=== PATIENT | female | born 1960 | race Caucasian/White ===

== ENCOUNTER 2017-10-16 20:20 | Inpatient (IN) | payer MEDICARE, BC ==
[2017-10-16] MEDS: SOD CHLORIDE 0.9% 1,000 ML IV ×2 (20:51→23:55)
[2017-10-16] MEDS: ONDANSETRON 4 MG INJ IV ×2 (20:51)
[2017-10-16] MEDS: NALOXONE 2 MG SYG IV (20:51)
[2017-10-16] MEDS ORDERED: LORAZEPAM 2 MG INJ (21:34)
[2017-10-16] MEDS: LORAZEPAM 2 MG INJ IV (21:40)
[2017-10-16 22:01] LABS: AADO2 Arterial 599.2 mmHg (7.0-24.0); Arterial Base Excess 2.6 mmol/L (-3.0-3); Arterial Blood Gas Oxygen Sat 94.6 mmHG (95.0-98.0); Arterial Fraction of Oxyhgb 93.2 % (93.0-99.0); Arterial HCO3 27.6 mmol/L (22.0-26.0); Arterial MetHb 0.5 % (0.0-1.5); Arterial pCO2 43.6 mmhg (35-45); MODE MASK - NRB; Site Right Brachial
[2017-10-16 22:07] LABS: HEMATOCRIT 42.5 % (37.0-47.0); HEMOGLOBIN 14.3 g/dl (12.0-16.0); MEAN CORPUSCULAR HEMOGLOBIN 31.4 pg (29.0-33.0); MEAN CORPUSCULAR HGB CONC 33.6 g/dl (32.0-37.0); MEAN CORPUSCULAR VOLUME 93.4 fl (82.0-101.0); MEAN PLATELET VOLUME 10.6 fl (7.4-10.4); PLATELET COUNT 272 10^3/UL (140-415); RED BLOOD COUNT 4.55 10^6/ul (4.20-5.40); RED CELL DISTRIBUTION WIDTH 15.4 % (11.5-14.5)
[2017-10-16 22:07] LABS: WHITE BLOOD COUNT 11.6 10^3/ul (4.8-10.8)
[2017-10-16 22:09] LABS: ADD MAN DIFF? YES; POSITIVE DIFF @See below
[2017-10-16 22:31] LABS: ANISOCYTOSIS 2+ (0-0); BAND NEUTROPHILS #M 5.3 10^3/ul (0.0-0.6); BAND NEUTROPHILS % (M) 46 % (0-4); LYMPHOCYTES #M 2.4 10^3/ul (0.8-2.9); LYMPHOCYTES % (M) 21 % (15-51); METAMYELOCYTES #M 0.5 10^3/ul (0.0-0.0); METAMYELOCYTES %M 5 % (0-0); MICROCYTOSIS 1+ (0-0); MONOCYTE #M 0.3 10^3/ul (0.3-0.9); MONOCYTES % (M) 3 % (0-11); PLATELET ESTIMATE NORMAL; POLYCHROMASIA 2+ (0-0); REACTIVE LYMPHOCYTES #M 0.3 10^3/ul (0.0-0.0); REACTIVE LYMPHOCYTES% (M) 3 % (0-0); SEG NEUT #M 3.2 10^3/ul (1.6-7.5); SEGMENTED NEUTROPHILS (M) % 22 % (39-77)
[2017-10-16 22:33] LABS: ANION GAP 29 (8-16); BLOOD UREA NITROGEN 34 mg/dl (7-20); CALCIUM 12.4 mg/dl (8.4-10.2); CARBON DIOXIDE 29 mmol/L (21-31); CHLORIDE 89 mmol/L (97-110); CREATININE 1.92 mg/dl (0.44-1.00); GLUCOSE 109 mg/dl (70-220); POTASSIUM 3.4 mmol/L (3.5-5.1); SODIUM 144 mmol/L (135-144)
[2017-10-16 22:44] LABS: B-TYPE NATRIURETIC PEPTIDE 5750 PG/ML (0-125)
[2017-10-16 22:47] LABS: TROPONIN-I < 0.012 ng/ml (0.00-0.12)
[2017-10-16] MEDS: PIPER-TAZO 3.375 GM IV (PMX) 100 ML IVPB (23:55)
[2017-10-16] MEDS: HYDROCODONE/APAP (5/325) TAB PO (23:55)
[2017-10-16] MEDS: POTASSIUM CHLORIDE (SR) 20 MEQ TAB PO (23:55)
[2017-10-16] MEDS: FUROSEMIDE 20 MG INJ IV (23:56)
[2017-10-17 00:45] LABS: LACTIC ACID 3.7 mmol/L (0.5-2.0)
[2017-10-17 02:49] LABS: LACTIC ACID 1.8 mmol/L (0.5-2.0)
[2017-10-17] MEDS ORDERED: BISACODYL (EC) 5 MG TAB PO (03:30)
[2017-10-17] MEDS ORDERED: ALBUTEROL HFA 8 GM INHALER INH (03:30)
[2017-10-17] MEDS ORDERED: NACL 3% FOR INHALATION 15 ML NEBU NEB (03:30)
[2017-10-17] MEDS ORDERED: NACL 0.9% 3 ML SYG IV (03:30)
[2017-10-17] MEDS ORDERED: VANCOMYCIN IV PER PHARMACY XX (04:00)
[2017-10-17] MEDS: SOD CHLORIDE 0.9% 500 ML IV (05:07)
[2017-10-17] MEDS: VANCOMYCIN 1.5 GM in SOD CHLORIDE 0.9% 250 ML IVPB (05:13)
[2017-10-17] MEDS: PIPER-TAZO 3.375 GM IV (PMX) 100 ML IVPB ×3 (06:53→21:02)
[2017-10-17 07:30] LABS: WHITE BLOOD COUNT 8.2 10^3/ul (4.8-10.8)
[2017-10-17 07:30] LABS: ABNORMAL IP MESSAGE 1; HEMOGLOBIN 10.1 g/dl (12.0-16.0); MEAN CORPUSCULAR HEMOGLOBIN 31.4 pg (29.0-33.0); MEAN CORPUSCULAR HGB CONC 33.7 g/dl (32.0-37.0); MEAN CORPUSCULAR VOLUME 93.2 fl (82.0-101.0); MEAN PLATELET VOLUME 10.9 fl (7.4-10.4); PLATELET COUNT 135 10^3/UL (140-415); RED BLOOD COUNT 3.22 10^6/ul (4.20-5.40)
[2017-10-17 07:42] LABS: ADD MAN DIFF? YES; POSITIVE DIFF @See below
[2017-10-17 07:59] LABS: ALANINE AMINOTRANSFERASE 21 IU/L (13-69); ALBUMIN 3.3 g/dl (3.3-4.9); ALBUMIN/GLOBULIN RATIO 1.03; ALKALINE PHOSPHATASE 42 IU/L (42-121); ANION GAP 16 (8-16); ASPARTATE AMINO TRANSFERASE 39 IU/L (15-46); BILIRUBIN,INDIRECT 0.7 mg/dl (0-1.1); BILIRUBIN,TOTAL 0.7 mg/dl (0.2-1.3); BLOOD UREA NITROGEN 40 mg/dl (7-20); CARBON DIOXIDE 32 mmol/L (21-31); CHLORIDE 99 mmol/L (97-110); CHOL/HDL RATIO 2.2 RATIO; CHOLESTEROL 109 mg/dl (100-200); CREATININE 1.63 mg/dl (0.44-1.00); GLUCOSE 82 mg/dl (70-220); HDL CHOLESTEROL 49 mg/dl (37-92); LDL CHOLESTEROL,CALCULATED 38 mg/dl; MAGNESIUM 1.2 mg/dl (1.7-2.5); POTASSIUM 4.4 mmol/L (3.5-5.1); SODIUM 143 mmol/L (135-144); TOTAL PROTEIN 6.5 g/dl (6.1-8.1); TRIGLYCERIDES 111 mg/dl (0-149)
[2017-10-17 08:12] LABS: LACTIC ACID 2.2 mmol/L (0.5-2.0)
[2017-10-17 08:20] LABS: HEMOGLOBIN A1C 4.8 % (0-5.9)
[2017-10-17] MEDS: ESTRADIOL 1 MG TAB PO (08:51)
[2017-10-17] MEDS: LEVETIRACETAM 500 MG TAB PO ×2 (08:52→20:53)
[2017-10-17] MEDS: QUETIAPINE 100 MG TAB PO ×2 (08:55→20:54)
[2017-10-17] MEDS ORDERED: morphine (ER) 15 MG TAB PO (09:00)
[2017-10-17] MEDS ORDERED: VILAZODONE HCL 20 MG PO (09:00)
[2017-10-17 09:07] LABS: ANISOCYTOSIS 1+ (0-0); BAND NEUTROPHILS #M 3.6 10^3/ul (0.0-0.6); BAND NEUTROPHILS % (M) 44 % (0-4); BASOPHILS % (M) 1 % (0-2); EOSINOPHILS % (M) 1 % (0-7); LYMPHOCYTES % (M) 37 % (15-51); METAMYELOCYTES #M 0.4 10^3/ul (0.0-0.0); METAMYELOCYTES %M 5 % (0-0); MICROCYTOSIS 1+ (0-0); MONOCYTES % (M) 1 % (0-11); PLATELET ESTIMATE DECREASED; POLYCHROMASIA 1+ (0-0); REACTIVE LYMPHOCYTES #M 0.1 10^3/ul (0.0-0.0); REACTIVE LYMPHOCYTES% (M) 2 % (0-0); SEG NEUT #M 1.1 10^3/ul (1.6-7.5); SEGMENTED NEUTROPHILS (M) % 10 % (39-77); SMUDGE%M 7 % (0-0)
[2017-10-17 09:15] LABS: THYROID STIMULATING HORMONE 0.187 MIU/L (0.465-4.680)
[2017-10-17] MEDS: MAGNESIUM SULFATE 4 GM/100 ML 100 ML IVPB (10:09)
[2017-10-17 13:09] LABS: FREE T4 (FREE THYROXINE) 1.45 ng/dl (0.64-1.79)
[2017-10-17] MEDS: ALBUTEROL 0.083% (NEB) 2.5 MG/3 ML AMP HHN ×2 (19:15→19:21)
[2017-10-17] MEDS: BALSAM PERU/CASTOR OIL 60 GM TUBE TOP (20:53)
[2017-10-17] MEDS: MEDROXYPROGESTERONE 2.5 MG TAB PO (21:02)
[2017-10-17] MEDS: SOD CHLORIDE 0.9% 1,000 ML IV (21:16)
[2017-10-18 00:16] LABS: ADD UMIC YES; UR ASCORBIC ACID NEGATIVE (NEGATIVE); UR BILIRUBIN (Dip) NEGATIVE (NEGATIVE); UR BLOOD (Dip) 2+ mg/dL (NEGATIVE); UR CLARITY CLEAR (CLEAR); UR COLOR YELLOW (YELLOW); UR GLUCOSE (Dip) NEGATIVE (NEGATIVE); UR KETONES (Dip) NEGATIVE (NEGATIVE); UR LEUKOCYTE ESTERASE (Dip) NEGATIVE Leu/ul (NEGATIVE); UR NITRITE (Dip) NEGATIVE (NEGATIVE); UR RBC 25 /HPF (0-5); UR SPECIFIC GRAVITY (Dip) 1.013 (1.003-1.030); UR TOTAL PROTEIN (Dip) NEGATIVE (NEGATIVE); UR UROBILINOGEN (Dip) NEGATIVE (NEGATIVE); UR WBC 5 /HPF (0-5)
[2017-10-18 00:48] LABS: AMPHETAMINE/METHAMPHETAMINE Positive (NEGATIVE); BARBITURATES Negative (NEGATIVE); BENZODIAZEPINES Negative (NEGATIVE); CANNABINOIDS Negative (NEGATIVE); COCAINE Negative (NEGATIVE); OPIATES Positive (NEGATIVE)
[2017-10-18 00:51] LABS: CREATININE,URINE RANDOM 34.98 mg/dl (20-320)
[2017-10-18 00:51] LABS: SODIUM,URINE RANDOM 39 mmol/L (30-90)
[2017-10-18] MEDS ORDERED: VANCOMYCIN 1 GM 250 ML IVPB (04:00)
[2017-10-18] MEDS: PIPER-TAZO 3.375 GM IV (PMX) 100 ML IVPB ×3 (05:54→22:36)
[2017-10-18 06:47] LABS: ABNORMAL IP MESSAGE 1; HEMATOCRIT 27.9 % (37.0-47.0); HEMOGLOBIN 9.6 g/dl (12.0-16.0); MEAN CORPUSCULAR HEMOGLOBIN 31.9 pg (29.0-33.0); MEAN CORPUSCULAR HGB CONC 34.4 g/dl (32.0-37.0); MEAN CORPUSCULAR VOLUME 92.7 fl (82.0-101.0); MEAN PLATELET VOLUME 10.7 fl (7.4-10.4); PLATELET COUNT 105 10^3/UL (140-415); RED BLOOD COUNT 3.01 10^6/ul (4.20-5.40); RED CELL DISTRIBUTION WIDTH 14.5 % (11.5-14.5)
[2017-10-18 06:47] LABS: WHITE BLOOD COUNT 7.5 10^3/ul (4.8-10.8)
[2017-10-18 06:57] LABS: INR 1.37; PROTIME 17.1 Sec (11.9-14.9); PT RATIO 1.3
[2017-10-18 06:58] LABS: PARTIAL THROMBOPLASTIN TIME 34.5 Sec (25.0-35.0)
[2017-10-18 07:03] LABS: ADD MAN DIFF? YES; POSITIVE DIFF @See below
[2017-10-18 07:05] LABS: ANION GAP 15 (8-16); BLOOD UREA NITROGEN 35 mg/dl (7-20); CALCIUM 9.8 mg/dl (8.4-10.2); CARBON DIOXIDE 29 mmol/L (21-31); CHLORIDE 105 mmol/L (97-110); CREATININE 1.31 mg/dl (0.44-1.00); GLUCOSE 70 mg/dl (70-220); MAGNESIUM 2.4 mg/dl (1.7-2.5); PHOSPHORUS 1.5 mg/dl (2.5-4.9); SODIUM 146 mmol/L (135-144)
[2017-10-18 07:08] LABS: VANCOMYCIN,RANDOM 13.1 ug/ml
[2017-10-18 07:13] LABS: HEMOGLOBIN A1C 4.7 % (0-5.9)
[2017-10-18 07:15] LABS: POTASSIUM 2.9 mmol/L (3.5-5.1)
[2017-10-18 07:42] LABS: CHOLESTEROL 115 mg/dl (100-200)
[2017-10-18 07:42] LABS: CHOL/HDL RATIO 2.8 RATIO; HDL CHOLESTEROL 41 mg/dl (37-92); LDL CHOLESTEROL,CALCULATED 42 mg/dl; TRIGLYCERIDES 158 mg/dl (0-149)
[2017-10-18 07:47] LABS: ANISOCYTOSIS 2+ (0-0); BAND NEUTROPHILS #M 3.8 10^3/ul (0.0-0.6); BAND NEUTROPHILS % (M) 51 % (0-4); BASOPHIL #M 0.1 10^3/ul (0.0-0.0); BASOPHILS % (M) 2 % (0-2); EOSINOPHILS % (M) 9 % (0-7); LYMPHOCYTES #M 0.9 10^3/ul (0.8-2.9); LYMPHOCYTES % (M) 13 % (15-51); MICROCYTOSIS 2+ (0-0); MONOCYTES % (M) 1 % (0-11); PLATELET ESTIMATE DECREASED; POLYCHROMASIA 3+ (0-0); SEG NEUT #M 2.2 10^3/ul (1.6-7.5); SEGMENTED NEUTROPHILS (M) % 25 % (39-77)
[2017-10-18] MEDS: ALBUTEROL 0.083% (NEB) 2.5 MG/3 ML AMP HHN ×3 (08:00→19:50)
[2017-10-18] MEDS: POTASSIUM CHLORIDE (SR) 20 MEQ TAB PO ×2 (08:47→15:46)
[2017-10-18] MEDS: QUETIAPINE 100 MG TAB PO ×2 (08:47→20:19)
[2017-10-18] MEDS: MEDROXYPROGESTERONE 2.5 MG TAB PO (08:47)
[2017-10-18] MEDS: ESTRADIOL 1 MG TAB PO (08:47)
[2017-10-18] MEDS: LORAZEPAM 1 MG TAB PO (08:48)
[2017-10-18] MEDS: BALSAM PERU/CASTOR OIL 60 GM TUBE TOP ×2 (08:48→20:20)
[2017-10-18] MEDS: LEVETIRACETAM 500 MG TAB PO ×2 (08:48→20:19)
[2017-10-18] MEDS: SOD CHLORIDE 0.45% 1,000 ML IV ×2 (09:30→18:16)
[2017-10-18] MEDS: POTASSIUM CHLORIDE 100 ML IVPB ×2 (18:15→20:27)
[2017-10-18] MEDS: POTASSIUM PHOSPHATE 20 MEQ in SOD CHLORIDE 0.9% 250 ML IVPB (18:15)
[2017-10-18 18:17] LABS: CREATINE KINASE 26 IU/L (23-200)
[2017-10-18 19:01] LABS: HIV 1&2 ANTIBODY NEGATIVE (NEGATIVE)
[2017-10-18] MEDS: LACTOBACILLUS RHAMNOSUS CAP PO (20:18)
[2017-10-18] MEDS: LORAZEPAM 2 MG INJ IV (22:36)
[2017-10-18] MEDS: VANCOMYCIN 1 GM 250 ML IVPB (23:58)
[2017-10-19] MEDS: PIPER-TAZO 3.375 GM IV (PMX) 100 ML IVPB (06:38)
[2017-10-19] MEDS: ALBUTEROL 0.083% (NEB) 2.5 MG/3 ML AMP HHN ×2 (08:17→15:50)
[2017-10-19] MEDS: LACTOBACILLUS RHAMNOSUS CAP PO ×2 (08:51→21:14)
[2017-10-19] MEDS: LEVETIRACETAM 500 MG TAB PO ×2 (08:52→21:14)
[2017-10-19] MEDS: BALSAM PERU/CASTOR OIL 60 GM TUBE TOP ×2 (08:52→21:16)
[2017-10-19] MEDS: MEDROXYPROGESTERONE 2.5 MG TAB PO (08:52)
[2017-10-19] MEDS: LORAZEPAM 2 MG INJ IV (08:52)
[2017-10-19] MEDS: QUETIAPINE 100 MG TAB PO ×2 (08:52→21:15)
[2017-10-19] MEDS: ESTRADIOL 1 MG TAB PO (08:52)
[2017-10-19] MEDS: ENOXAPARIN 40 MG/0.4 ML SYG SC (09:01)
[2017-10-19] MEDS: LIDOCAINE 1% (MPF) 5 ML VIAL SC (10:10)
[2017-10-19] MEDS: SOD CHLORIDE 0.9% 100 ML (10:20)
[2017-10-19 10:44] LABS: ADD MAN DIFF? NO
[2017-10-19 10:48] LABS: WHITE BLOOD COUNT 9.6 10^3/ul (4.8-10.8)
[2017-10-19 10:48] LABS: BASOPHIL # 0.1 10^3/ul (0.0-0.1); BASOPHILS % 0.7 % (0.0-2.0); EOSINOPHILS # 0.1 10^3/ul (0.0-0.5); EOSINOPHILS % 0.7 % (0.0-7.0); HEMATOCRIT 28.7 % (37.0-47.0); HEMOGLOBIN 9.7 g/dl (12.0-16.0); MEAN CORPUSCULAR HEMOGLOBIN 31.2 pg (29.0-33.0); MEAN CORPUSCULAR HGB CONC 33.8 g/dl (32.0-37.0); MEAN CORPUSCULAR VOLUME 92.3 fl (82.0-101.0); MEAN PLATELET VOLUME 10.2 fl (7.4-10.4); MONOCYTE # 0.7 10^3/ul (0.3-0.9); MONOCYTES % 6.7 % (0.0-11.0); NEUTROPHIL # 7.6 10^3/ul (1.6-7.5); NEUTROPHILS % 78.5 % (39.0-77.0); PLATELET COUNT 129 10^3/UL (140-415); RED BLOOD COUNT 3.11 10^6/ul (4.20-5.40); RED CELL DISTRIBUTION WIDTH 14.6 % (11.5-14.5)
[2017-10-19 11:09] LABS: ALANINE AMINOTRANSFERASE 27 IU/L (13-69); ALBUMIN 3.1 g/dl (3.3-4.9); ALKALINE PHOSPHATASE 71 IU/L (42-121); ANION GAP 20 (8-16); ASPARTATE AMINO TRANSFERASE 23 IU/L (15-46); BILIRUBIN,INDIRECT 0.4 mg/dl (0-1.1); BILIRUBIN,TOTAL 0.4 mg/dl (0.2-1.3); BLOOD UREA NITROGEN 25 mg/dl (7-20); CALCIUM 10.1 mg/dl (8.4-10.2); CARBON DIOXIDE 27 mmol/L (21-31); CHLORIDE 110 mmol/L (97-110); CREATININE 1.12 mg/dl (0.44-1.00); GLUCOSE 91 mg/dl (70-220); MAGNESIUM 1.9 mg/dl (1.7-2.5); PHOSPHORUS 3.4 mg/dl (2.5-4.9); POTASSIUM 3.9 mmol/L (3.5-5.1); SODIUM 153 mmol/L (135-144); TOTAL PROTEIN 6.2 g/dl (6.1-8.1)
[2017-10-19 11:40] LABS: TRIIODOTHYRONINE 0.39 ng/ml (0.97-1.69)
[2017-10-19 11:48] LABS: FREE T4 (FREE THYROXINE) 1.24 ng/dl (0.64-1.79)
[2017-10-19] MEDS: LEVOFLOXACIN 500MG/D5W (PMX) 100 ML IVPB (12:51)
[2017-10-19] MEDS ORDERED: AMIKACIN IV PER PHARMACY XX (13:00)
[2017-10-19] MEDS: AMIKACIN IVPB (14:46)
[2017-10-19] MEDS: DEXTROSE 5% IVPB (14:46)
[2017-10-19] MEDS: [UNRECOGNIZED DRUG - OTHER] XX ×2 (15:00→23:00)
[2017-10-19] MEDS: LINEZOLID 600 MG/D5W (PMX) 300 ML IVPB (21:15)
[2017-10-20] MEDS: ALBUTEROL 0.083% (NEB) 2.5 MG/3 ML AMP HHN ×3 (00:07→16:00)
[2017-10-20] MEDS: SOD CHLORIDE 0.45% 1,000 ML IV ×2 (01:30→21:36)
[2017-10-20] MEDS: ONDANSETRON 4 MG INJ IV ×4 (02:22→23:03)
[2017-10-20] MEDS: ACETAMINOPHEN 325 MG TAB PO (02:22)
[2017-10-20] MEDS: [UNRECOGNIZED DRUG - OTHER] XX ×3 (07:00→23:00)
[2017-10-20] MEDS: LINEZOLID 600 MG/D5W (PMX) 300 ML IVPB ×2 (08:38→21:36)
[2017-10-20] MEDS: LEVETIRACETAM 500 MG TAB PO ×2 (08:39→21:00)
[2017-10-20] MEDS: LACTOBACILLUS RHAMNOSUS CAP PO ×2 (08:39→21:00)
[2017-10-20] MEDS: QUETIAPINE 100 MG TAB PO ×2 (08:39→21:00)
[2017-10-20] MEDS: BALSAM PERU/CASTOR OIL 60 GM TUBE TOP ×2 (08:47→21:09)
[2017-10-20] MEDS: ENOXAPARIN 40 MG/0.4 ML SYG SC (08:50)
[2017-10-20] MEDS: DEXTROSE 5% 1,000 ML IV (10:25)
[2017-10-20] MEDS: morphine 2 MG INJ IV ×2 (11:01→21:09)
[2017-10-20] MEDS: LEVOFLOXACIN 500MG/D5W (PMX) 100 ML IVPB (13:00)
[2017-10-20 14:02] LABS: WHITE BLOOD COUNT 8.2 10^3/ul (4.8-10.8)
[2017-10-20 14:02] LABS: ABNORMAL IP MESSAGE 1; HEMATOCRIT 30.9 % (37.0-47.0); HEMOGLOBIN 10.6 g/dl (12.0-16.0); MEAN CORPUSCULAR HEMOGLOBIN 30.6 pg (29.0-33.0); MEAN CORPUSCULAR HGB CONC 34.3 g/dl (32.0-37.0); MEAN CORPUSCULAR VOLUME 89.3 fl (82.0-101.0); MEAN PLATELET VOLUME 10.5 fl (7.4-10.4); PLATELET COUNT 114 10^3/UL (140-415); RED BLOOD COUNT 3.46 10^6/ul (4.20-5.40); RED CELL DISTRIBUTION WIDTH 14.4 % (11.5-14.5)
[2017-10-20 14:04] LABS: POSITIVE DIFF @See below
[2017-10-20 14:05] LABS: ADD MAN DIFF? YES
[2017-10-20] MEDS: LORAZEPAM 2 MG INJ IV ×2 (14:18→23:04)
[2017-10-20 14:20] LABS: LIPASE 194 U/L (23-300)
[2017-10-20 14:20] LABS: ALANINE AMINOTRANSFERASE 23 IU/L (13-69); ALBUMIN 3.1 g/dl (3.3-4.9); ALKALINE PHOSPHATASE 72 IU/L (42-121); ANION GAP 11 (8-16); ASPARTATE AMINO TRANSFERASE 17 IU/L (15-46); BILIRUBIN,INDIRECT 0.3 mg/dl (0-1.1); BILIRUBIN,TOTAL 0.3 mg/dl (0.2-1.3); BLOOD UREA NITROGEN 19 mg/dl (7-20); CALCIUM 9.6 mg/dl (8.4-10.2); CARBON DIOXIDE 35 mmol/L (21-31); CHLORIDE 100 mmol/L (97-110); CREATININE 0.89 mg/dl (0.44-1.00); GLUCOSE 156 mg/dl (70-220); MAGNESIUM 1.6 mg/dl (1.7-2.5); SODIUM 143 mmol/L (135-144); TOTAL PROTEIN 6.2 g/dl (6.1-8.1)
[2017-10-20 14:22] LABS: INR 1.15; POTASSIUM 2.8 mmol/L (3.5-5.1); PROTIME 14.9 Sec (11.9-14.9); PT RATIO 1.2
[2017-10-20 14:48] LABS: CREATININE, RANDOM URINE 42 mg/dL (20-320); MICROALBUMIN 0.3 mg/dL; MICROALBUMIN/CREATININE RATIO 7 (<30)
[2017-10-20 14:58] LABS: ANISOCYTOSIS 2+ (0-0); BAND NEUTROPHILS % (M) 13 % (0-4); EOSINOPHILS % (M) 1 % (0-7); ERYTHROBLAST% (NRBC) (M) 1 % (0-0); LYMPHOCYTES #M 1.4 10^3/ul (0.8-2.9); LYMPHOCYTES % (M) 18 % (15-51); METAMYELOCYTES %M 1 % (0-0); MICROCYTOSIS 2+ (0-0); MONOCYTE #M 0.2 10^3/ul (0.3-0.9); MONOCYTES % (M) 3 % (0-11); MYELOCYTES % (M) 1 % (0-0); PLATELET ESTIMATE DECREASED; POLYCHROMASIA 3+ (0-0); REACTIVE LYMPHOCYTES #M 0.5 10^3/ul (0.0-0.0); REACTIVE LYMPHOCYTES% (M) 7 % (0-0); SEG NEUT #M 4.7 10^3/ul (1.6-7.5); SEGMENTED NEUTROPHILS (M) % 56 % (39-77); SMUDGE%M 4 % (0-0)
[2017-10-20] MEDS: IOHEXOL 300MG/ML 150 ML BTL (15:46)
[2017-10-20] MEDS: SOD CHLORIDE 0.9% 100 ML (15:46)
[2017-10-20] MEDS: POTASSIUM CHLORIDE 100 ML IVPB ×3 (17:17→23:03)
[2017-10-20] MEDS: AMIKACIN IVPB (17:32)
[2017-10-20] MEDS: DEXTROSE 5% IVPB (17:32)
[2017-10-20] MEDS: traZODone 50 MG TAB PO (21:00)
[2017-10-20] MEDS: MAGNESIUM SULFATE 2 GM/50 ML 50 ML IVPB (23:03)
[2017-10-21] MEDS: ALBUTEROL 0.083% (NEB) 2.5 MG/3 ML AMP HHN ×3 (00:20→16:01)
[2017-10-21] MEDS: morphine 2 MG INJ IV ×3 (03:15→19:45)
[2017-10-21] MEDS: LORAZEPAM 2 MG INJ IV ×3 (06:02→17:54)
[2017-10-21 06:05] LABS: ABNORMAL IP MESSAGE 1; HEMATOCRIT 32.5 % (37.0-47.0); HEMOGLOBIN 11.1 g/dl (12.0-16.0); MEAN CORPUSCULAR HEMOGLOBIN 30.7 pg (29.0-33.0); MEAN CORPUSCULAR HGB CONC 34.2 g/dl (32.0-37.0); MEAN PLATELET VOLUME 10.9 fl (7.4-10.4); PLATELET COUNT 127 10^3/UL (140-415); RED BLOOD COUNT 3.61 10^6/ul (4.20-5.40); RED CELL DISTRIBUTION WIDTH 14.5 % (11.5-14.5)
[2017-10-21 06:05] LABS: WHITE BLOOD COUNT 11.4 10^3/ul (4.8-10.8)
[2017-10-21 06:11] LABS: POSITIVE DIFF @See below
[2017-10-21 06:12] LABS: ADD MAN DIFF? YES
[2017-10-21 06:37] LABS: ANION GAP 10 (8-16); BLOOD UREA NITROGEN 14 mg/dl (7-20); CALCIUM 9.7 mg/dl (8.4-10.2); CARBON DIOXIDE 36 mmol/L (21-31); CHLORIDE 99 mmol/L (97-110); CREATININE 0.89 mg/dl (0.44-1.00); GLUCOSE 114 mg/dl (70-220); MAGNESIUM 2.4 mg/dl (1.7-2.5); PHOSPHORUS 2.5 mg/dl (2.5-4.9); POTASSIUM 3.7 mmol/L (3.5-5.1); SODIUM 141 mmol/L (135-144)
[2017-10-21] MEDS: [UNRECOGNIZED DRUG - OTHER] XX ×3 (07:00→23:00)
[2017-10-21 08:00] LABS: ANISOCYTOSIS 1+ (0-0); BAND NEUTROPHILS #M 0.6 10^3/ul (0.0-0.6); BAND NEUTROPHILS % (M) 6 % (0-4); EOSINOPHILS % (M) 1 % (0-7); LYMPHOCYTES % (M) 18 % (15-51); METAMYELOCYTES #M 0.1 10^3/ul (0.0-0.0); METAMYELOCYTES %M 1 % (0-0); MICROCYTOSIS 1+ (0-0); MONOCYTE #M 0.7 10^3/ul (0.3-0.9); MONOCYTES % (M) 7 % (0-11); MYELOCYTES #M 0.4 10^3/ul (0.0-0.0); MYELOCYTES % (M) 4 % (0-0); PLATELET ESTIMATE DECREASED; POLYCHROMASIA 3+ (0-0); REACTIVE LYMPHOCYTES #M 0.9 10^3/ul (0.0-0.0); REACTIVE LYMPHOCYTES% (M) 8 % (0-0); SEG NEUT #M 6.3 10^3/ul (1.6-7.5); SEGMENTED NEUTROPHILS (M) % 55 % (39-77); SMUDGE%M 5 % (0-0)
[2017-10-21] MEDS: QUETIAPINE 100 MG TAB PO ×2 (09:00→21:00)
[2017-10-21] MEDS: LACTOBACILLUS RHAMNOSUS CAP PO ×2 (09:00→22:31)
[2017-10-21] MEDS: LEVETIRACETAM 500 MG TAB PO (09:00)
[2017-10-21] MEDS: BALSAM PERU/CASTOR OIL 60 GM TUBE TOP ×2 (09:37→22:55)
[2017-10-21] MEDS: LINEZOLID 600 MG/D5W (PMX) 300 ML IVPB ×2 (09:38→20:22)
[2017-10-21] MEDS: ENOXAPARIN 40 MG/0.4 ML SYG SC (10:34)
[2017-10-21 12:16] LABS: NIL 0.03 IU/mL; QUANTIFERON(R)-TB GOLD NEGATIVE (NEGATIVE); TB-NIL <0.00 IU/mL
[2017-10-21] MEDS: LEVOFLOXACIN 500MG/D5W (PMX) 100 ML IVPB (12:18)
[2017-10-21] MEDS: SOD CHLORIDE 0.45% 1,000 ML IV (13:30)
[2017-10-21 17:56] LABS: MYCOPLASMA PNEUMONIAE AB (IGG) < or = 0.90
[2017-10-21] MEDS: traZODone 50 MG TAB PO (21:00)
[2017-10-21] MEDS: LEVETIRACETAM 500 MG (PMX) 100 ML IVPB (22:53)
[2017-10-22] MEDS: morphine 2 MG INJ IV ×6 (02:47→22:52)
[2017-10-22] MEDS: LORAZEPAM 2 MG INJ IV ×5 (02:47→22:52)
[2017-10-22] MEDS: AMIKACIN IVPB (06:08)
[2017-10-22] MEDS: DEXTROSE 5% IVPB (06:08)
[2017-10-22] MEDS: [UNRECOGNIZED DRUG - OTHER] XX ×3 (07:00→23:00)
[2017-10-22] MEDS: ALBUTEROL 0.083% (NEB) 2.5 MG/3 ML AMP HHN ×3 (08:00→15:38)
[2017-10-22] MEDS: ENOXAPARIN 40 MG/0.4 ML SYG SC (08:45)
[2017-10-22] MEDS: BALSAM PERU/CASTOR OIL 60 GM TUBE TOP ×2 (08:46→21:00)
[2017-10-22] MEDS: LEVETIRACETAM 500 MG (PMX) 100 ML IVPB ×2 (08:46→20:52)
[2017-10-22] MEDS: MEDROXYPROGESTERONE 2.5 MG TAB PO (08:46)
[2017-10-22] MEDS: ESTRADIOL 1 MG TAB PO (08:46)
[2017-10-22] MEDS: LACTOBACILLUS RHAMNOSUS CAP PO ×2 (08:46→20:59)
[2017-10-22] MEDS: LINEZOLID 600 MG/D5W (PMX) 300 ML IVPB ×2 (08:46→20:52)
[2017-10-22] MEDS: QUETIAPINE 100 MG TAB PO ×2 (08:46→21:00)
[2017-10-22] MEDS: SOD CHLORIDE 0.45% 1,000 ML IV (09:30)
[2017-10-22] MEDS: LEVOFLOXACIN 500MG/D5W (PMX) 100 ML IVPB (13:42)
[2017-10-22 15:46] LABS: ANION GAP 10 (8-16); BLOOD UREA NITROGEN 13 mg/dl (7-20); CALCIUM 9.8 mg/dl (8.4-10.2); CARBON DIOXIDE 28 mmol/L (21-31); CHLORIDE 100 mmol/L (97-110); CREATININE 0.93 mg/dl (0.44-1.00); GLUCOSE 79 mg/dl (70-220); MAGNESIUM 1.6 mg/dl (1.7-2.5); PHOSPHORUS 3.8 mg/dl (2.5-4.9); POTASSIUM 3.2 mmol/L (3.5-5.1); SODIUM 135 mmol/L (135-144)
[2017-10-22] MEDS: DIATR MEGLU/DIATRIZOATE SODIUM 120 ML BTL (16:23)
[2017-10-22 17:24] LABS: ABNORMAL IP MESSAGE 1; HEMATOCRIT 29.2 % (37.0-47.0); MEAN CORPUSCULAR HEMOGLOBIN 30.9 pg (29.0-33.0); MEAN CORPUSCULAR HGB CONC 34.2 g/dl (32.0-37.0); MEAN CORPUSCULAR VOLUME 90.1 fl (82.0-101.0); MEAN PLATELET VOLUME 11.3 fl (7.4-10.4); PLATELET COUNT 116 10^3/UL (140-415); RED BLOOD COUNT 3.24 10^6/ul (4.20-5.40); RED CELL DISTRIBUTION WIDTH 14.5 % (11.5-14.5)
[2017-10-22 17:24] LABS: WHITE BLOOD COUNT 9.1 10^3/ul (4.8-10.8)
[2017-10-22 17:29] LABS: ADD MAN DIFF? YES; POSITIVE DIFF @See below
[2017-10-22 18:04] LABS: ANISOCYTOSIS 1+ (0-0); BAND NEUTROPHILS #M 0.1 10^3/ul (0.0-0.6); BAND NEUTROPHILS % (M) 2 % (0-4); EOSINOPHILS % (M) 5 % (0-7); LYMPHOCYTES #M 3.3 10^3/ul (0.8-2.9); LYMPHOCYTES % (M) 37 % (15-51); MICROCYTOSIS 1+ (0-0); MONOCYTES % (M) 11 % (0-11); PLATELET MORPHOLOGY COMMENT @See below; REACTIVE LYMPHOCYTES #M 0.1 10^3/ul (0.0-0.0); REACTIVE LYMPHOCYTES% (M) 2 % (0-0); SEGMENTED NEUTROPHILS (M) % 44 % (39-77); SMUDGE%M 11 % (0-0)
[2017-10-22] MEDS: traZODone 50 MG TAB PO (21:00)
[2017-10-23] MEDS: LORAZEPAM 2 MG INJ IV ×5 (02:56→21:52)
[2017-10-23] MEDS: morphine 2 MG INJ IV ×5 (02:56→21:53)
[2017-10-23] MEDS: SOD CHLORIDE 0.45% 1,000 ML IV (03:12)
[2017-10-23] MEDS: POTASSIUM CHLORIDE 100 ML IVPB (03:12)
[2017-10-23] MEDS: [UNRECOGNIZED DRUG - OTHER] XX ×2 (07:00→15:00)
[2017-10-23] MEDS: ALBUTEROL 0.083% (NEB) 2.5 MG/3 ML AMP HHN ×3 (08:00→16:00)
[2017-10-23] MEDS: ACETAMINOPHEN 325 MG TAB PO (09:11)
[2017-10-23] MEDS: ESTRADIOL 1 MG TAB PO (09:11)
[2017-10-23] MEDS: LINEZOLID 600 MG/D5W (PMX) 300 ML IVPB ×2 (09:12→20:10)
[2017-10-23] MEDS: QUETIAPINE 100 MG TAB PO ×2 (09:12→20:10)
[2017-10-23] MEDS: LEVETIRACETAM 500 MG (PMX) 100 ML IVPB ×2 (09:12→20:09)
[2017-10-23] MEDS: BALSAM PERU/CASTOR OIL 60 GM TUBE TOP ×2 (09:12→20:11)
[2017-10-23] MEDS: LACTOBACILLUS RHAMNOSUS CAP PO ×2 (09:12→20:10)
[2017-10-23] MEDS: MEDROXYPROGESTERONE 2.5 MG TAB PO (09:12)
[2017-10-23] MEDS: ENOXAPARIN 40 MG/0.4 ML SYG SC (09:13)
[2017-10-23 12:11] LABS: WHITE BLOOD COUNT 11.9 10^3/ul (4.8-10.8)
[2017-10-23 12:11] LABS: ABNORMAL IP MESSAGE 1; HEMOGLOBIN 11.5 g/dl (12.0-16.0); MEAN CORPUSCULAR HEMOGLOBIN 30.7 pg (29.0-33.0); MEAN CORPUSCULAR HGB CONC 34.8 g/dl (32.0-37.0); MEAN CORPUSCULAR VOLUME 88.2 fl (82.0-101.0); MEAN PLATELET VOLUME 10.6 fl (7.4-10.4); PLATELET COUNT 145 10^3/UL (140-415); RED BLOOD COUNT 3.74 10^6/ul (4.20-5.40); RED CELL DISTRIBUTION WIDTH 14.5 % (11.5-14.5)
[2017-10-23 12:19] LABS: ADD MAN DIFF? YES; POSITIVE DIFF @See below
[2017-10-23] MEDS: LEVOFLOXACIN 500MG/D5W (PMX) 100 ML IVPB (12:33)
[2017-10-23 12:34] LABS: ANION GAP 14 (8-16); BLOOD UREA NITROGEN 13 mg/dl (7-20); CALCIUM 9.1 mg/dl (8.4-10.2); CARBON DIOXIDE 30 mmol/L (21-31); CHLORIDE 94 mmol/L (97-110); CREATININE 1.02 mg/dl (0.44-1.00); GLUCOSE 86 mg/dl (70-220); MAGNESIUM 1.6 mg/dl (1.7-2.5); PHOSPHORUS 3.6 mg/dl (2.5-4.9); POTASSIUM 3.1 mmol/L (3.5-5.1); SODIUM 135 mmol/L (135-144)
[2017-10-23 12:50] LABS: ANISOCYTOSIS 1+ (0-0); BAND NEUTROPHILS #M 0.4 10^3/ul (0.0-0.6); BAND NEUTROPHILS % (M) 4 % (0-4); BASOPHIL #M 0.1 10^3/ul (0.0-0.0); BASOPHILS % (M) 1 % (0-2); EOSINOPHILS % (M) 6 % (0-7); LYMPHOCYTES #M 3.4 10^3/ul (0.8-2.9); LYMPHOCYTES % (M) 29 % (15-51); MICROCYTOSIS 1+ (0-0); MONOCYTE #M 0.2 10^3/ul (0.3-0.9); MONOCYTES % (M) 2 % (0-11); MYELOCYTES #M 0.3 10^3/ul (0.0-0.0); MYELOCYTES % (M) 3 % (0-0); PLATELET ESTIMATE NORMAL; POLYCHROMASIA 3+ (0-0); SEG NEUT #M 6.6 10^3/ul (1.6-7.5); SEGMENTED NEUTROPHILS (M) % 55 % (39-77); SMUDGE%M 17 % (0-0)
[2017-10-23 13:03] LABS: HEPATITIS B SURFACE ANTIGEN NEGATIVE (NEGATIVE)
[2017-10-23 13:20] LABS: HEPATITIS C VIRAL ANTIBODY NEGATIVE (NEGATIVE)
[2017-10-23 13:21] LABS: HEPATITIS B SURFACE ANTIBODY NEGATIVE (NEGATIVE)
[2017-10-23] MEDS: POTASSIUM CHLORIDE 50 ML IVPB ×2 (13:52→15:00)
[2017-10-23] MEDS: MAGNESIUM SULFATE 2 GM/50 ML 50 ML IVPB (15:00)
[2017-10-23 15:12] LABS: ALANINE AMINOTRANSFERASE 21 IU/L (13-69); ALBUMIN 3.2 g/dl (3.3-4.9); ALKALINE PHOSPHATASE 93 IU/L (42-121); ASPARTATE AMINO TRANSFERASE 20 IU/L (15-46); BILIRUBIN,INDIRECT 0.6 mg/dl (0-1.1); BILIRUBIN,TOTAL 0.6 mg/dl (0.2-1.3); TOTAL PROTEIN 6.3 g/dl (6.1-8.1)
[2017-10-23] MEDS: DEXTROSE 5% IVPB (18:18)
[2017-10-23] MEDS: AMIKACIN IVPB (18:18)
[2017-10-23] MEDS: 1/2 NS + KCL 20 MEQ 1,000 ML IV ×2 (20:00→21:00)
[2017-10-23] MEDS: traZODone 50 MG TAB PO (20:10)
[2017-10-24] MEDS: morphine 2 MG INJ IV ×6 (01:49→22:17)
[2017-10-24] MEDS: LORAZEPAM 2 MG INJ IV ×5 (01:49→20:09)
[2017-10-24] MEDS: ALBUTEROL 0.083% (NEB) 2.5 MG/3 ML AMP HHN ×4 (02:00→16:00)
[2017-10-24] MEDS: MEDROXYPROGESTERONE 2.5 MG TAB PO (09:00)
[2017-10-24] MEDS: ESTRADIOL 1 MG TAB PO (09:00)
[2017-10-24] MEDS: BALSAM PERU/CASTOR OIL 60 GM TUBE TOP ×2 (09:01→20:30)
[2017-10-24] MEDS: QUETIAPINE 100 MG TAB PO ×2 (09:01→20:19)
[2017-10-24] MEDS: LACTOBACILLUS RHAMNOSUS CAP PO ×2 (09:01→20:18)
[2017-10-24] MEDS: ENOXAPARIN 40 MG/0.4 ML SYG SC (09:03)
[2017-10-24] MEDS: LINEZOLID 600 MG/D5W (PMX) 300 ML IVPB ×2 (09:04→20:17)
[2017-10-24] MEDS: LEVETIRACETAM 500 MG (PMX) 100 ML IVPB ×2 (09:05→20:17)
[2017-10-24 12:35] LABS: ADD MAN DIFF? NO
[2017-10-24 12:37] LABS: WHITE BLOOD COUNT 11.6 10^3/ul (4.8-10.8)
[2017-10-24 12:37] LABS: ABNORMAL IP MESSAGE 1; HEMATOCRIT 33.7 % (37.0-47.0); HEMOGLOBIN 11.5 g/dl (12.0-16.0); MEAN CORPUSCULAR HEMOGLOBIN 30.2 pg (29.0-33.0); MEAN CORPUSCULAR HGB CONC 34.1 g/dl (32.0-37.0); MEAN CORPUSCULAR VOLUME 88.5 fl (82.0-101.0); MEAN PLATELET VOLUME 10.3 fl (7.4-10.4); PLATELET COUNT 157 10^3/UL (140-415); RED BLOOD COUNT 3.81 10^6/ul (4.20-5.40); RED CELL DISTRIBUTION WIDTH 14.6 % (11.5-14.5)
[2017-10-24 12:38] LABS: POSITIVE DIFF @See below
[2017-10-24 12:54] LABS: ALANINE AMINOTRANSFERASE 22 IU/L (13-69); ALBUMIN 3.1 g/dl (3.3-4.9); ALKALINE PHOSPHATASE 92 IU/L (42-121); ASPARTATE AMINO TRANSFERASE 25 IU/L (15-46); BILIRUBIN,INDIRECT 0.6 mg/dl (0-1.1); BILIRUBIN,TOTAL 0.6 mg/dl (0.2-1.3); TOTAL PROTEIN 6.4 g/dl (6.1-8.1)
[2017-10-24 12:56] LABS: ANION GAP 11 (8-16); BLOOD UREA NITROGEN 11 mg/dl (7-20); CARBON DIOXIDE 33 mmol/L (21-31); CHLORIDE 97 mmol/L (97-110); CREATININE 0.99 mg/dl (0.44-1.00); GLUCOSE 98 mg/dl (70-220); MAGNESIUM 1.8 mg/dl (1.7-2.5); PHOSPHORUS 3.1 mg/dl (2.5-4.9); POTASSIUM 3.9 mmol/L (3.5-5.1); SODIUM 137 mmol/L (135-144)
[2017-10-24 13:30] LABS: ANISOCYTOSIS 1+ (0-0); EOSINOPHILS % (M) 2 % (0-7); HYPOCHROMASIA 1+ (0-0); LYMPHOCYTES #M 2.3 10^3/ul (0.8-2.9); LYMPHOCYTES % (M) 20 % (15-51); METAMYELOCYTES #M 0.1 10^3/ul (0.0-0.0); METAMYELOCYTES %M 1 % (0-0); MONOCYTE #M 0.6 10^3/ul (0.3-0.9); MONOCYTES % (M) 6 % (0-11); MYELOCYTES #M 0.1 10^3/ul (0.0-0.0); MYELOCYTES % (M) 1 % (0-0); PLATELET ESTIMATE NORMAL; SEGMENTED NEUTROPHILS (M) % 67 % (39-77); SMUDGE%M 3 % (0-0)
[2017-10-24] MEDS: LEVOFLOXACIN 500MG/D5W (PMX) 100 ML IVPB (14:06)
[2017-10-24] MEDS: 1/2 NS + KCL 20 MEQ 1,000 ML IV (16:00)
[2017-10-24] MEDS: LIDOCAINE 1% (MPF) 5 ML VIAL SC ×2 (17:00→17:30)
[2017-10-24] MEDS: metroNIDAZOLE 500 MG/NS (PMX) 100 ML IVPB ×2 (18:24→22:17)
[2017-10-24] MEDS: traZODone 50 MG TAB PO (20:19)
[2017-10-24] MEDS: ACETAMINOPHEN 325 MG TAB PO (22:11)
[2017-10-25] MEDS: LORAZEPAM 2 MG INJ IV ×5 (00:37→23:04)
[2017-10-25] MEDS: ALBUTEROL 0.083% (NEB) 2.5 MG/3 ML AMP HHN ×3 (00:41→16:00)
[2017-10-25] MEDS: BALSAM PERU/CASTOR OIL 60 GM TUBE TOP ×3 (02:00→21:00)
[2017-10-25] MEDS: morphine 2 MG INJ IV ×5 (02:14→21:07)
[2017-10-25] MEDS: 1/2 NS + KCL 20 MEQ 1,000 ML IV (06:10)
[2017-10-25] MEDS: AMIKACIN IVPB (06:11)
[2017-10-25] MEDS: DEXTROSE 5% IVPB (06:11)
[2017-10-25] MEDS: metroNIDAZOLE 500 MG/NS (PMX) 100 ML IVPB ×3 (06:12→22:07)
[2017-10-25] MEDS: LINEZOLID 600 MG/D5W (PMX) 300 ML IVPB ×2 (08:54→21:07)
[2017-10-25] MEDS: MEDROXYPROGESTERONE 2.5 MG TAB PO (08:54)
[2017-10-25] MEDS: LACTOBACILLUS RHAMNOSUS CAP PO ×2 (08:54→21:20)
[2017-10-25] MEDS: LEVETIRACETAM 500 MG (PMX) 100 ML IVPB ×2 (08:54→21:06)
[2017-10-25] MEDS: ESTRADIOL 1 MG TAB PO (08:54)
[2017-10-25] MEDS: QUETIAPINE 100 MG TAB PO ×3 (08:54→21:20)
[2017-10-25] MEDS: ENOXAPARIN 40 MG/0.4 ML SYG SC (08:56)
[2017-10-25 09:35] LABS: ADD MAN DIFF? NO
[2017-10-25 09:37] LABS: BASOPHIL # 0.1 10^3/ul (0.0-0.1); BASOPHILS % 0.7 % (0.0-2.0); EOSINOPHILS # 0.5 10^3/ul (0.0-0.5); EOSINOPHILS % 3.5 % (0.0-7.0); HEMATOCRIT 33.6 % (37.0-47.0); HEMOGLOBIN 11.6 g/dl (12.0-16.0); LYMPHOCYTES % 21.5 % (15.0-51.0); MEAN CORPUSCULAR HEMOGLOBIN 31.1 pg (29.0-33.0); MEAN CORPUSCULAR HGB CONC 34.5 g/dl (32.0-37.0); MEAN CORPUSCULAR VOLUME 90.1 fl (82.0-101.0); MONOCYTE # 0.5 10^3/ul (0.3-0.9); MONOCYTES % 3.8 % (0.0-11.0); NEUTROPHIL # 9.1 10^3/ul (1.6-7.5); NEUTROPHILS % 66.1 % (39.0-77.0); PLATELET COUNT 158 10^3/UL (140-415); RED BLOOD COUNT 3.73 10^6/ul (4.20-5.40); RED CELL DISTRIBUTION WIDTH 14.6 % (11.5-14.5)
[2017-10-25 09:37] LABS: WHITE BLOOD COUNT 13.8 10^3/ul (4.8-10.8)
[2017-10-25 09:59] LABS: ANION GAP 14 (8-16); BLOOD UREA NITROGEN 9 mg/dl (7-20); CALCIUM 8.7 mg/dl (8.4-10.2); CARBON DIOXIDE 25 mmol/L (21-31); CHLORIDE 105 mmol/L (97-110); CREATININE 0.93 mg/dl (0.44-1.00); GLUCOSE 98 mg/dl (70-220); MAGNESIUM 1.5 mg/dl (1.7-2.5); PHOSPHORUS 3.2 mg/dl (2.5-4.9); POTASSIUM 3.6 mmol/L (3.5-5.1); SODIUM 140 mmol/L (135-144)
[2017-10-25] MEDS: LEVOFLOXACIN 500MG/D5W (PMX) 100 ML IVPB (12:20)
[2017-10-25] MEDS: MAGNESIUM SULFATE 2 GM/50 ML 50 ML IVPB (17:18)
[2017-10-25] MEDS: traZODone 50 MG TAB PO ×2 (21:00→21:20)
[2017-10-25] MEDS ORDERED: VITAMIN A & D 5 GM OINT PACKET TOP (21:04)
[2017-10-26] MEDS: ALBUTEROL 0.083% (NEB) 2.5 MG/3 ML AMP HHN ×3 (00:57→16:47)
[2017-10-26] MEDS: LORAZEPAM 2 MG INJ IV ×4 (02:22→20:48)
[2017-10-26] MEDS: QUETIAPINE 100 MG TAB PO ×2 (04:55→23:34)
[2017-10-26] MEDS: metroNIDAZOLE 500 MG/NS (PMX) 100 ML IVPB ×3 (04:58→23:34)
[2017-10-26] MEDS: 1/2 NS + KCL 20 MEQ 1,000 ML IV (06:49)
[2017-10-26] MEDS: LEVETIRACETAM 500 MG (PMX) 100 ML IVPB ×2 (08:14→20:47)
[2017-10-26] MEDS: BALSAM PERU/CASTOR OIL 60 GM TUBE TOP ×2 (08:15→23:36)
[2017-10-26] MEDS: MEDROXYPROGESTERONE 2.5 MG TAB PO (08:15)
[2017-10-26] MEDS: ESTRADIOL 1 MG TAB PO (08:15)
[2017-10-26] MEDS: LACTOBACILLUS RHAMNOSUS CAP PO ×2 (08:15→21:00)
[2017-10-26] MEDS: ENOXAPARIN 40 MG/0.4 ML SYG SC (08:17)
[2017-10-26] MEDS: morphine 2 MG INJ IV (08:22)
[2017-10-26] MEDS: LINEZOLID 600 MG/D5W (PMX) 300 ML IVPB ×2 (09:21→20:48)
[2017-10-26] MEDS: HYDROmorphONE 2 MG/ML SYG IV ×3 (12:06→23:37)
[2017-10-26] MEDS: LEVOFLOXACIN 500MG/D5W (PMX) 100 ML IVPB (13:52)
[2017-10-26] MEDS: DOCUSATE SODIUM 100 MG CAP PO (14:01)
[2017-10-26] MEDS: DEXTROSE 5% IVPB (18:07)
[2017-10-26] MEDS: AMIKACIN IVPB (18:07)
[2017-10-26] MEDS: ONDANSETRON 4 MG INJ IV (20:48)
[2017-10-26] MEDS: traZODone 50 MG TAB PO (21:00)
[2017-10-27] MEDS: ALBUTEROL 0.083% (NEB) 2.5 MG/3 ML AMP HHN ×3 (00:34→16:32)
[2017-10-27] MEDS: HYDROmorphONE 2 MG/ML SYG IV ×5 (03:17→20:25)
[2017-10-27] MEDS: 1/2 NS + KCL 20 MEQ 1,000 ML IV (05:50)
[2017-10-27] MEDS: metroNIDAZOLE 500 MG/NS (PMX) 100 ML IVPB ×3 (05:52→22:34)
[2017-10-27] MEDS: LORAZEPAM 2 MG INJ IV (05:53)
[2017-10-27] MEDS: BALSAM PERU/CASTOR OIL 60 GM TUBE TOP ×2 (08:20→22:34)
[2017-10-27] MEDS: LACTOBACILLUS RHAMNOSUS CAP PO ×2 (08:20→20:19)
[2017-10-27] MEDS: ESTRADIOL 1 MG TAB PO (08:20)
[2017-10-27] MEDS: QUETIAPINE 100 MG TAB PO ×4 (08:20→20:20)
[2017-10-27] MEDS: MEDROXYPROGESTERONE 2.5 MG TAB PO (08:20)
[2017-10-27] MEDS: ENOXAPARIN 40 MG/0.4 ML SYG SC (08:24)
[2017-10-27] MEDS: LEVETIRACETAM 500 MG (PMX) 100 ML IVPB (08:26)
[2017-10-27] MEDS: LINEZOLID 600 MG/D5W (PMX) 300 ML IVPB ×2 (08:58→20:33)
[2017-10-27] MEDS: LEVOFLOXACIN 500MG/D5W (PMX) 100 ML IVPB (12:25)
[2017-10-27] MEDS ORDERED: morphine (ER) 15 MG TAB PO (12:30)
[2017-10-27] MEDS: ONDANSETRON 4 MG INJ IV ×2 (13:58→18:45)
[2017-10-27] MEDS: LORAZEPAM 1 MG TAB PO (15:04)
[2017-10-27] MEDS: LEVETIRACETAM 500 MG TAB PO (20:19)
[2017-10-27] MEDS: traZODone 50 MG TAB PO (21:00)
[2017-10-28] MEDS: HYDROmorphONE 2 MG/ML SYG IV ×6 (00:32→20:08)
[2017-10-28] MEDS: ALBUTEROL 0.083% (NEB) 2.5 MG/3 ML AMP HHN ×3 (00:36→16:00)
[2017-10-28] MEDS: ONDANSETRON 4 MG INJ IV ×5 (00:44→17:53)
[2017-10-28] MEDS: LORAZEPAM 1 MG TAB PO ×2 (02:59→14:34)
[2017-10-28] MEDS ORDERED: METOCLOPRAMIDE 10 MG INJ IV (04:00)
[2017-10-28] MEDS: metroNIDAZOLE 500 MG/NS (PMX) 100 ML IVPB ×3 (05:57→23:12)
[2017-10-28 06:04] LABS: ADD MAN DIFF? NO
[2017-10-28 06:17] LABS: BASOPHIL # 0.1 10^3/ul (0.0-0.1); BASOPHILS % 0.3 % (0.0-2.0); EOSINOPHILS # 0.1 10^3/ul (0.0-0.5); EOSINOPHILS % 0.4 % (0.0-7.0); HEMATOCRIT 30.8 % (37.0-47.0); HEMOGLOBIN 10.7 g/dl (12.0-16.0); LYMPHOCYTES # 1.8 10^3/ul (0.8-2.9); LYMPHOCYTES % 9.8 % (15.0-51.0); MEAN CORPUSCULAR HEMOGLOBIN 30.7 pg (29.0-33.0); MEAN CORPUSCULAR HGB CONC 34.7 g/dl (32.0-37.0); MEAN CORPUSCULAR VOLUME 88.3 fl (82.0-101.0); MEAN PLATELET VOLUME 10.2 fl (7.4-10.4); MONOCYTE # 0.5 10^3/ul (0.3-0.9); MONOCYTES % 2.9 % (0.0-11.0); NEUTROPHIL # 15.5 10^3/ul (1.6-7.5); NEUTROPHILS % 85.8 % (39.0-77.0); PLATELET COUNT 166 10^3/UL (140-415); RED BLOOD COUNT 3.49 10^6/ul (4.20-5.40); RED CELL DISTRIBUTION WIDTH 14.7 % (11.5-14.5)
[2017-10-28 06:17] LABS: WHITE BLOOD COUNT 18.1 10^3/ul (4.8-10.8)
[2017-10-28 06:34] LABS: ANION GAP 14 (8-16); BLOOD UREA NITROGEN 10 mg/dl (7-20); CALCIUM 9.1 mg/dl (8.4-10.2); CARBON DIOXIDE 28 mmol/L (21-31); CHLORIDE 96 mmol/L (97-110); CREATININE 0.87 mg/dl (0.44-1.00); GLUCOSE 98 mg/dl (70-220); MAGNESIUM 1.3 mg/dl (1.7-2.5); PHOSPHORUS 3.6 mg/dl (2.5-4.9); POTASSIUM 3.4 mmol/L (3.5-5.1); SODIUM 135 mmol/L (135-144)
[2017-10-28] MEDS: LINEZOLID 600 MG/D5W (PMX) 300 ML IVPB ×2 (08:45→21:31)
[2017-10-28] MEDS: ENOXAPARIN 40 MG/0.4 ML SYG SC (08:52)
[2017-10-28] MEDS: BALSAM PERU/CASTOR OIL 60 GM TUBE TOP ×2 (08:53→20:35)
[2017-10-28] MEDS: POTASSIUM CHLORIDE 100 ML IVPB ×2 (09:34→15:55)
[2017-10-28] MEDS: LACTOBACILLUS RHAMNOSUS CAP PO ×2 (09:34→20:26)
[2017-10-28] MEDS: ESTRADIOL 1 MG TAB PO (09:34)
[2017-10-28] MEDS: MEDROXYPROGESTERONE 2.5 MG TAB PO (09:34)
[2017-10-28] MEDS: LEVETIRACETAM 500 MG TAB PO (09:34)
[2017-10-28] MEDS: QUETIAPINE 100 MG TAB PO ×2 (09:34→22:45)
[2017-10-28] MEDS ORDERED: PROCHLORPERAZINE 10 MG INJ IV (10:30)
[2017-10-28] MEDS: SOD CHLORIDE 0.9% 1,000 ML IV ×2 (10:30→17:56)
[2017-10-28] MEDS: AMIKACIN IVPB (10:56)
[2017-10-28] MEDS: DEXTROSE 5% IVPB (10:56)
[2017-10-28] MEDS: LEVOFLOXACIN 500MG/D5W (PMX) 100 ML IVPB (11:56)
[2017-10-28] MEDS ORDERED: HYDROmorphONE 2 MG/ML SYG IV (12:30)
[2017-10-28] MEDS: MAGNESIUM SULFATE 2 GM/50 ML 50 ML IVPB (13:02)
[2017-10-28] MEDS: ACCU-CHEK XX ×3 (16:43→21:00)
[2017-10-28] MEDS: [UNRECOGNIZED DRUG - REMARK] XX (17:12)
[2017-10-28 17:21] LABS: AMIKACIN TROUGH <2.5 mg/L (4.0-8.0)
[2017-10-28 19:07] LABS: NIL 0.04 IU/mL; QUANTIFERON(R)-TB GOLD NEGATIVE (NEGATIVE); TB-NIL <0.00 IU/mL
[2017-10-28] MEDS: PROCHLORPERAZINE 10 MG INJ IV (20:21)
[2017-10-28] MEDS: LEVETIRACETAM 500 MG (PMX) 100 ML IVPB (20:26)
[2017-10-28] MEDS: traZODone 50 MG TAB PO (20:27)
[2017-10-28 22:30] LABS: ALANINE AMINOTRANSFERASE 22 IU/L (13-69); ALBUMIN/GLOBULIN RATIO 0.96; ALKALINE PHOSPHATASE 97 IU/L (42-121); ASPARTATE AMINO TRANSFERASE 16 IU/L (15-46); BILIRUBIN,INDIRECT 0.8 mg/dl (0-1.1); BILIRUBIN,TOTAL 1.1 mg/dl (0.2-1.3); BLOOD UREA NITROGEN 13 mg/dl (7-20); CALCIUM 8.8 mg/dl (8.4-10.2); CARBON DIOXIDE 28 mmol/L (21-31); CHLORIDE 96 mmol/L (97-110); GLUCOSE 106 mg/dl (70-220); MAGNESIUM 1.9 mg/dl (1.7-2.5); PHOSPHORUS 3.2 mg/dl (2.5-4.9); SODIUM 132 mmol/L (135-144); TOTAL PROTEIN 6.1 g/dl (6.1-8.1); TRIGLYCERIDES 90 mg/dl (0-149)
[2017-10-28] MEDS ORDERED: MAGNESIUM SULFATE 3 GM in DEXTROSE 5% 100 ML IVPB (22:30)
[2017-10-28] MEDS: TPN 1,000 ML IV (22:35)
[2017-10-28 22:36] LABS: ANION GAP 12 (8-16); POTASSIUM 3.9 mmol/L (3.5-5.1)
[2017-10-28 23:01] LABS: PREALBUMIN 11.6 mg/dl (17.6-36.0)
[2017-10-29] MEDS: HYDROmorphONE 2 MG/ML SYG IV ×6 (00:15→21:56)
[2017-10-29] MEDS: ONDANSETRON 4 MG INJ IV ×4 (00:15→17:03)
[2017-10-29] MEDS: ACCU-CHEK XX ×6 (01:18→21:14)
[2017-10-29] MEDS: PROCHLORPERAZINE 10 MG INJ IV (03:02)
[2017-10-29] MEDS: metroNIDAZOLE 500 MG/NS (PMX) 100 ML IVPB ×3 (06:18→21:56)
[2017-10-29 06:38] LABS: ADD MAN DIFF? NO
[2017-10-29 06:40] LABS: BASOPHILS % 0.3 % (0.0-2.0); EOSINOPHILS # 0.1 10^3/ul (0.0-0.5); EOSINOPHILS % 0.6 % (0.0-7.0); HEMATOCRIT 25.4 % (37.0-47.0); HEMOGLOBIN 8.9 g/dl (12.0-16.0); LYMPHOCYTES # 2.1 10^3/ul (0.8-2.9); LYMPHOCYTES % 18.3 % (15.0-51.0); MEAN CORPUSCULAR VOLUME 88.5 fl (82.0-101.0); MEAN PLATELET VOLUME 10.6 fl (7.4-10.4); MONOCYTE # 0.5 10^3/ul (0.3-0.9); MONOCYTES % 4.2 % (0.0-11.0); NEUTROPHIL # 8.8 10^3/ul (1.6-7.5); PLATELET COUNT 134 10^3/UL (140-415); RED BLOOD COUNT 2.87 10^6/ul (4.20-5.40); RED CELL DISTRIBUTION WIDTH 15.1 % (11.5-14.5)
[2017-10-29 06:40] LABS: WHITE BLOOD COUNT 11.6 10^3/ul (4.8-10.8)
[2017-10-29 07:04] LABS: ANION GAP 13 (8-16); BLOOD UREA NITROGEN 16 mg/dl (7-20); CALCIUM 8.3 mg/dl (8.4-10.2); CARBON DIOXIDE 28 mmol/L (21-31); CHLORIDE 97 mmol/L (97-110); CREATININE 0.89 mg/dl (0.44-1.00); GLUCOSE 97 mg/dl (70-220); MAGNESIUM 1.8 mg/dl (1.7-2.5); PHOSPHORUS 2.8 mg/dl (2.5-4.9); POTASSIUM 3.6 mmol/L (3.5-5.1); SODIUM 134 mmol/L (135-144)
[2017-10-29] MEDS: LORAZEPAM 1 MG TAB PO ×2 (07:48→20:20)
[2017-10-29] MEDS: MEDROXYPROGESTERONE 2.5 MG TAB PO (08:07)
[2017-10-29] MEDS: ESTRADIOL 1 MG TAB PO (08:08)
[2017-10-29] MEDS: LACTOBACILLUS RHAMNOSUS CAP PO ×2 (08:08→20:20)
[2017-10-29] MEDS: LEVETIRACETAM 500 MG (PMX) 100 ML IVPB ×2 (08:08→20:19)
[2017-10-29] MEDS: QUETIAPINE 100 MG TAB PO ×2 (08:08→20:21)
[2017-10-29] MEDS: ENOXAPARIN 40 MG/0.4 ML SYG SC (08:09)
[2017-10-29] MEDS: TPN 1,000 ML IV ×2 (08:10→14:37)
[2017-10-29] MEDS: BALSAM PERU/CASTOR OIL 60 GM TUBE TOP ×2 (08:13→20:19)
[2017-10-29] MEDS: [UNRECOGNIZED DRUG - REMARK] XX (08:15)
[2017-10-29] MEDS: ALBUTEROL 0.083% (NEB) 2.5 MG/3 ML AMP HHN ×3 (08:34→15:22)
[2017-10-29] MEDS: LINEZOLID 600 MG/D5W (PMX) 300 ML IVPB ×2 (09:23→21:14)
[2017-10-29 11:11] LABS: MITOCHONDRIAL TB NEGATIVE (NEGATIVE); SMOOTH MUSCLE AB SCREEN NEGATIVE (NEGATIVE)
[2017-10-29] MEDS: LEVOFLOXACIN 500MG/D5W (PMX) 100 ML IVPB (12:26)
[2017-10-29 14:11] LABS: ANA SCREEN NEGATIVE (NEGATIVE)
[2017-10-29] MEDS: SOD CHLORIDE 0.9% 1,000 ML IV (16:02)
[2017-10-29] MEDS: DEXTROSE 5% IVPB (17:04)
[2017-10-29] MEDS: AMIKACIN IVPB (17:04)
[2017-10-29] MEDS: traZODone 50 MG TAB PO (20:20)
[2017-10-30] MEDS: ONDANSETRON 4 MG INJ IV ×4 (00:17→18:26)
[2017-10-30] MEDS: ALBUTEROL 0.083% (NEB) 2.5 MG/3 ML AMP HHN ×3 (00:20→17:15)
[2017-10-30] MEDS: ACCU-CHEK XX ×4 (01:12→17:21)
[2017-10-30] MEDS: SOD CHLORIDE 0.9% 1,000 ML IV (02:09)
[2017-10-30] MEDS: HYDROmorphONE 2 MG/ML SYG IV ×5 (02:09→20:51)
[2017-10-30] MEDS: TPN 1,000 ML IV ×2 (03:46→16:54)
[2017-10-30] MEDS: metroNIDAZOLE 500 MG/NS (PMX) 100 ML IVPB ×3 (05:29→23:42)
[2017-10-30 06:31] LABS: ANION GAP 8 (8-16); BLOOD UREA NITROGEN 20 mg/dl (7-20); CALCIUM 8.1 mg/dl (8.4-10.2); CARBON DIOXIDE 29 mmol/L (21-31); CHLORIDE 104 mmol/L (97-110); CREATININE 0.83 mg/dl (0.44-1.00); GLUCOSE 100 mg/dl (70-220); MAGNESIUM 1.7 mg/dl (1.7-2.5); PHOSPHORUS 2.7 mg/dl (2.5-4.9); POTASSIUM 3.3 mmol/L (3.5-5.1); SODIUM 138 mmol/L (135-144)
[2017-10-30] MEDS: [UNRECOGNIZED DRUG - REMARK] XX (09:00)
[2017-10-30] MEDS: LACTOBACILLUS RHAMNOSUS CAP PO ×2 (09:05→20:58)
[2017-10-30] MEDS: QUETIAPINE 100 MG TAB PO ×2 (09:05→20:54)
[2017-10-30] MEDS: ESTRADIOL 1 MG TAB PO (09:05)
[2017-10-30] MEDS: MEDROXYPROGESTERONE 2.5 MG TAB PO (09:05)
[2017-10-30] MEDS: LINEZOLID 600 MG/D5W (PMX) 300 ML IVPB ×2 (09:06→20:55)
[2017-10-30] MEDS: LEVETIRACETAM 500 MG (PMX) 100 ML IVPB ×2 (09:06→22:54)
[2017-10-30] MEDS: BALSAM PERU/CASTOR OIL 60 GM TUBE TOP ×2 (09:06→20:55)
[2017-10-30] MEDS: ENOXAPARIN 40 MG/0.4 ML SYG SC (09:08)
[2017-10-30] MEDS: LORAZEPAM 1 MG TAB PO (09:10)
[2017-10-30] MEDS: LEVOFLOXACIN 500MG/D5W (PMX) 100 ML IVPB (12:42)
[2017-10-30] MEDS: POTASSIUM CHLORIDE 100 ML IVPB ×2 (16:48→18:48)
[2017-10-30] MEDS: ACETAMINOPHEN 325 MG TAB PO (18:59)
[2017-10-30] MEDS: traZODone 50 MG TAB PO (20:54)
[2017-10-30] MEDS: LORAZEPAM 2 MG INJ IV (21:59)
[2017-10-31] MEDS: ALBUTEROL 0.083% (NEB) 2.5 MG/3 ML AMP HHN ×3 (00:48→15:05)
[2017-10-31] MEDS: HYDROmorphONE 2 MG/ML SYG IV ×6 (00:54→21:35)
[2017-10-31] MEDS: ONDANSETRON 4 MG INJ IV ×3 (01:12→20:41)
[2017-10-31] MEDS: SOD CHLORIDE 0.9% 500 ML IV (03:01)
[2017-10-31] MEDS: ACCU-CHEK XX ×4 (05:22→18:22)
[2017-10-31] MEDS: DEXTROSE 5% IVPB (05:22)
[2017-10-31] MEDS: AMIKACIN IVPB (05:22)
[2017-10-31] MEDS: metroNIDAZOLE 500 MG/NS (PMX) 100 ML IVPB ×2 (06:51→14:56)
[2017-10-31] MEDS: TPN 1,000 ML IV ×3 (06:52→19:57)
[2017-10-31] MEDS: LEVETIRACETAM 500 MG (PMX) 100 ML IVPB ×2 (08:33→20:41)
[2017-10-31] MEDS: QUETIAPINE 100 MG TAB PO ×2 (09:00→20:20)
[2017-10-31] MEDS: MEDROXYPROGESTERONE 2.5 MG TAB PO (09:00)
[2017-10-31] MEDS: ESTRADIOL 1 MG TAB PO (09:00)
[2017-10-31] MEDS: [UNRECOGNIZED DRUG - REMARK] XX (09:00)
[2017-10-31] MEDS: LINEZOLID 600 MG/D5W (PMX) 300 ML IVPB (09:28)
[2017-10-31] MEDS: BALSAM PERU/CASTOR OIL 60 GM TUBE TOP ×2 (09:32→20:41)
[2017-10-31] MEDS: ENOXAPARIN 40 MG/0.4 ML SYG SC (09:40)
[2017-10-31] MEDS: LORAZEPAM 2 MG INJ IV ×2 (10:24→22:32)
[2017-10-31 10:56] LABS: ANION GAP 17 (8-16); BLOOD UREA NITROGEN 18 mg/dl (7-20); CALCIUM 8.5 mg/dl (8.4-10.2); CARBON DIOXIDE 23 mmol/L (21-31); CHLORIDE 103 mmol/L (97-110); CREATININE 0.77 mg/dl (0.44-1.00); GLUCOSE 125 mg/dl (70-220); MAGNESIUM 1.5 mg/dl (1.7-2.5); PHOSPHORUS 2.8 mg/dl (2.5-4.9); POTASSIUM 4.7 mmol/L (3.5-5.1); SODIUM 138 mmol/L (135-144)
[2017-10-31] MEDS: LACTOBACILLUS RHAMNOSUS CAP PO ×2 (12:21→20:20)
[2017-10-31] MEDS: SOD CHLORIDE 0.9% 1,000 ML IV ×2 (12:42→17:30)
[2017-10-31] MEDS: LEVOFLOXACIN 500MG/D5W (PMX) 100 ML IVPB (13:25)
[2017-10-31] MEDS: MAGNESIUM SULFATE 1 GM/D5W 100 ML IVPB (17:27)
[2017-10-31] MEDS: MAGNESIUM SULFATE 2 GM/50 ML 50 ML IVPB (18:43)
[2017-10-31] MEDS: traZODone 50 MG TAB PO (20:20)
[2017-10-31] MEDS ORDERED: LORAZEPAM 0.5 MG TAB PO ×2 (21:00)
[2017-11-01] MEDS: HYDROmorphONE 2 MG/ML SYG IV ×5 (01:46→22:13)
[2017-11-01] MEDS: ONDANSETRON 4 MG INJ IV ×4 (03:09→19:35)
[2017-11-01] MEDS: ACCU-CHEK XX ×4 (06:00→18:16)
[2017-11-01] MEDS: ALBUTEROL 0.083% (NEB) 2.5 MG/3 ML AMP HHN ×4 (08:00→23:54)
[2017-11-01] MEDS: MEDROXYPROGESTERONE 2.5 MG TAB PO (09:00)
[2017-11-01] MEDS: ESTRADIOL 1 MG TAB PO (09:00)
[2017-11-01] MEDS: [UNRECOGNIZED DRUG - REMARK] XX (09:00)
[2017-11-01] MEDS: LACTOBACILLUS RHAMNOSUS CAP PO ×2 (09:00→21:00)
[2017-11-01] MEDS: QUETIAPINE 100 MG TAB PO ×2 (09:00→21:00)
[2017-11-01] MEDS: LEVETIRACETAM 500 MG (PMX) 100 ML IVPB ×2 (09:53→21:32)
[2017-11-01] MEDS: ENOXAPARIN 40 MG/0.4 ML SYG SC (09:54)
[2017-11-01] MEDS: BALSAM PERU/CASTOR OIL 60 GM TUBE TOP ×2 (09:54→21:33)
[2017-11-01] MEDS: TPN 1,000 ML IV ×2 (09:54→22:19)
[2017-11-01] MEDS: LORAZEPAM 2 MG INJ IV ×2 (10:54→23:15)
[2017-11-01 11:46] LABS: ANION GAP 8 (8-16); BLOOD UREA NITROGEN 18 mg/dl (7-20); CALCIUM 8.2 mg/dl (8.4-10.2); CARBON DIOXIDE 26 mmol/L (21-31); CHLORIDE 110 mmol/L (97-110); CREATININE 0.72 mg/dl (0.44-1.00); GLUCOSE 89 mg/dl (70-220); PHOSPHORUS 2.8 mg/dl (2.5-4.9); POTASSIUM 3.8 mmol/L (3.5-5.1); SODIUM 140 mmol/L (135-144)
[2017-11-01] MEDS: AMIKACIN IVPB (18:06)
[2017-11-01] MEDS: DEXTROSE 5% IVPB (18:06)
[2017-11-01] MEDS: SOD CHLORIDE 0.9% 1,000 ML IV (18:23)
[2017-11-01] MEDS: traZODone 50 MG TAB PO (21:00)
[2017-11-02] MEDS: ACCU-CHEK XX ×4 (00:36→20:32)
[2017-11-02] MEDS: HYDROmorphONE 2 MG/ML SYG IV ×5 (02:16→18:25)
[2017-11-02 05:52] LABS: ANION GAP 10 (8-16); BLOOD UREA NITROGEN 19 mg/dl (7-20); CALCIUM 7.8 mg/dl (8.4-10.2); CARBON DIOXIDE 27 mmol/L (21-31); CHLORIDE 108 mmol/L (97-110); CREATININE 0.68 mg/dl (0.44-1.00); GLUCOSE 89 mg/dl (70-220); MAGNESIUM 1.7 mg/dl (1.7-2.5); PHOSPHORUS 3.4 mg/dl (2.5-4.9); POTASSIUM 3.6 mmol/L (3.5-5.1); SODIUM 141 mmol/L (135-144)
[2017-11-02] MEDS: ALBUTEROL 0.083% (NEB) 2.5 MG/3 ML AMP HHN ×3 (08:00→20:46)
[2017-11-02] MEDS: ESTRADIOL 1 MG TAB PO ×2 (08:49→09:19)
[2017-11-02] MEDS: LACTOBACILLUS RHAMNOSUS CAP PO ×3 (08:49→20:14)
[2017-11-02] MEDS: QUETIAPINE 100 MG TAB PO ×3 (08:49→20:14)
[2017-11-02] MEDS: MEDROXYPROGESTERONE 2.5 MG TAB PO ×2 (08:49→09:19)
[2017-11-02] MEDS: LEVETIRACETAM 500 MG (PMX) 100 ML IVPB ×2 (08:49→20:14)
[2017-11-02] MEDS: ENOXAPARIN 40 MG/0.4 ML SYG SC (08:51)
[2017-11-02] MEDS: [UNRECOGNIZED DRUG - REMARK] XX (08:51)
[2017-11-02] MEDS: BALSAM PERU/CASTOR OIL 60 GM TUBE TOP ×2 (08:52→20:18)
[2017-11-02] MEDS: SOD CHLORIDE 0.9% 1,000 ML IV ×2 (08:53→20:21)
[2017-11-02] MEDS: TPN 1,000 ML IV (10:22)
[2017-11-02] MEDS: LORAZEPAM 2 MG INJ IV (11:12)
[2017-11-02] MEDS: traZODone 50 MG TAB PO (20:25)
[2017-11-02] MEDS: SOD CHLORIDE 0.9% 500 ML IV (23:15)
[2017-11-03] MEDS: HYDROmorphONE 2 MG/ML SYG IV ×6 (00:52→21:40)
[2017-11-03] MEDS: LORAZEPAM 2 MG INJ IV ×2 (03:00→14:58)
[2017-11-03] MEDS: TPN 1,000 ML IV ×2 (04:02→13:54)
[2017-11-03 06:14] LABS: ANION GAP 12 (8-16); BLOOD UREA NITROGEN 14 mg/dl (7-20); CALCIUM 8.3 mg/dl (8.4-10.2); CARBON DIOXIDE 26 mmol/L (21-31); CHLORIDE 112 mmol/L (97-110); CREATININE 0.69 mg/dl (0.44-1.00); GLUCOSE 88 mg/dl (70-220); MAGNESIUM 1.4 mg/dl (1.7-2.5); PHOSPHORUS 3.5 mg/dl (2.5-4.9); POTASSIUM 3.5 mmol/L (3.5-5.1); SODIUM 146 mmol/L (135-144)
[2017-11-03] MEDS: ALBUTEROL 0.083% (NEB) 2.5 MG/3 ML AMP HHN ×2 (08:00→16:00)
[2017-11-03] MEDS: ACCU-CHEK XX ×2 (08:23→21:00)
[2017-11-03] MEDS: BALSAM PERU/CASTOR OIL 60 GM TUBE TOP ×2 (08:27→21:41)
[2017-11-03] MEDS: LACTOBACILLUS RHAMNOSUS CAP PO ×2 (08:27→20:50)
[2017-11-03] MEDS: ESTRADIOL 1 MG TAB PO (08:27)
[2017-11-03] MEDS: QUETIAPINE 100 MG TAB PO ×2 (08:32→21:00)
[2017-11-03] MEDS: ENOXAPARIN 40 MG/0.4 ML SYG SC (08:33)
[2017-11-03] MEDS: [UNRECOGNIZED DRUG - REMARK] XX (08:34)
[2017-11-03] MEDS: MEDROXYPROGESTERONE 2.5 MG TAB PO (09:26)
[2017-11-03] MEDS: LEVETIRACETAM 500 MG (PMX) 100 ML IVPB ×2 (09:26→20:49)
[2017-11-03] MEDS: AMIKACIN IVPB (13:54)
[2017-11-03] MEDS: DEXTROSE 5% IVPB (13:54)
[2017-11-03] MEDS: MAGNESIUM SULFATE 2 GM/50 ML 50 ML IVPB (14:58)
[2017-11-03] MEDS: FUROSEMIDE 20 MG TAB PO (17:34)
[2017-11-03 19:55] LABS: AMIKACIN TROUGH <2.5 mg/L (4.0-8.0)
[2017-11-03] MEDS: FAT EMULSION 20% 100 ML IV (20:50)
[2017-11-03] MEDS: traZODone 50 MG TAB PO (20:54)
[2017-11-03] MEDS: SOD CHLORIDE 0.9% 1,000 ML IV (20:58)
[2017-11-04] MEDS: HYDROmorphONE 2 MG/ML SYG IV ×6 (01:43→22:44)
[2017-11-04] MEDS: LORAZEPAM 2 MG INJ IV ×2 (03:06→15:27)
[2017-11-04] MEDS: TPN 1,000 ML IV ×4 (04:32→23:18)
[2017-11-04] MEDS: SOD CHLORIDE 0.9% 1,000 ML IV ×2 (05:38→20:38)
[2017-11-04 07:23] LABS: ALANINE AMINOTRANSFERASE 22 IU/L (13-69); ALBUMIN 2.8 g/dl (3.3-4.9); ALKALINE PHOSPHATASE 72 IU/L (42-121); ANION GAP 8 (8-16); ASPARTATE AMINO TRANSFERASE 21 IU/L (15-46); BILIRUBIN,INDIRECT 0.2 mg/dl (0-1.1); BILIRUBIN,TOTAL 0.2 mg/dl (0.2-1.3); BLOOD UREA NITROGEN 14 mg/dl (7-20); CALCIUM 8.7 mg/dl (8.4-10.2); CARBON DIOXIDE 31 mmol/L (21-31); CHLORIDE 105 mmol/L (97-110); CREATININE 0.67 mg/dl (0.44-1.00); GLUCOSE 86 mg/dl (70-220); MAGNESIUM 1.7 mg/dl (1.7-2.5); PHOSPHORUS 3.6 mg/dl (2.5-4.9); POTASSIUM 3.4 mmol/L (3.5-5.1); SODIUM 141 mmol/L (135-144); TOTAL PROTEIN 5.6 g/dl (6.1-8.1)
[2017-11-04 07:28] LABS: PREALBUMIN 15.3 mg/dl (17.6-36.0)
[2017-11-04] MEDS: ALBUTEROL 0.083% (NEB) 2.5 MG/3 ML AMP HHN ×3 (07:59→16:00)
[2017-11-04] MEDS: LACTOBACILLUS RHAMNOSUS CAP PO ×2 (08:49→20:38)
[2017-11-04] MEDS: ESTRADIOL 1 MG TAB PO (08:49)
[2017-11-04] MEDS: MEDROXYPROGESTERONE 2.5 MG TAB PO (08:49)
[2017-11-04] MEDS: LEVETIRACETAM 500 MG (PMX) 100 ML IVPB ×2 (08:49→20:37)
[2017-11-04] MEDS: QUETIAPINE 100 MG TAB PO ×2 (08:50→20:38)
[2017-11-04] MEDS: ENOXAPARIN 40 MG/0.4 ML SYG SC (08:53)
[2017-11-04] MEDS: BALSAM PERU/CASTOR OIL 60 GM TUBE TOP ×2 (08:57→20:39)
[2017-11-04] MEDS: [UNRECOGNIZED DRUG - REMARK] XX (09:00)
[2017-11-04] MEDS: ACCU-CHEK XX ×2 (09:00→20:59)
[2017-11-04] MEDS: FAT EMULSION 20% 100 ML IV ×3 (09:04→18:55)
[2017-11-04] MEDS: POTASSIUM CHLORIDE (SR) 20 MEQ TAB PO (17:20)
[2017-11-04] MEDS: DEXTROSE 5% IVPB (17:20)
[2017-11-04] MEDS: AMIKACIN IVPB (17:20)
[2017-11-04] MEDS: traZODone 50 MG TAB PO (20:48)
[2017-11-04] MEDS: ONDANSETRON 4 MG INJ IV (22:44)
[2017-11-05] MEDS: HYDROmorphONE 2 MG/ML SYG IV ×3 (02:55→12:13)
[2017-11-05] MEDS: LORAZEPAM 2 MG INJ IV ×2 (04:22→18:13)
[2017-11-05] MEDS: ALBUTEROL 0.083% (NEB) 2.5 MG/3 ML AMP HHN ×3 (08:04→17:05)
[2017-11-05] MEDS: [UNRECOGNIZED DRUG - REMARK] XX (09:00)
[2017-11-05] MEDS: QUETIAPINE 100 MG TAB PO ×2 (09:28→21:25)
[2017-11-05] MEDS: MEDROXYPROGESTERONE 2.5 MG TAB PO (09:28)
[2017-11-05] MEDS: LEVETIRACETAM 500 MG (PMX) 100 ML IVPB ×2 (09:28→21:25)
[2017-11-05] MEDS: LACTOBACILLUS RHAMNOSUS CAP PO ×2 (09:28→21:25)
[2017-11-05] MEDS: ESTRADIOL 1 MG TAB PO (09:28)
[2017-11-05] MEDS: ACCU-CHEK XX ×2 (09:35→21:00)
[2017-11-05] MEDS: ENOXAPARIN 40 MG/0.4 ML SYG SC (09:36)
[2017-11-05] MEDS: BALSAM PERU/CASTOR OIL 60 GM TUBE TOP ×2 (09:38→21:33)
[2017-11-05] MEDS: TPN 1,000 ML IV (15:29)
[2017-11-05] MEDS: SOD CHLORIDE 0.9% 1,000 ML IV (15:34)
[2017-11-05] MEDS: FAT EMULSION 20% 100 ML IV (15:34)
[2017-11-05] MEDS: FUROSEMIDE 20 MG TAB PO (16:24)
[2017-11-05] MEDS: HYDROmorphONE 0.5 MG/0.5 ML SYG IV ×2 (16:24→20:23)
[2017-11-05] MEDS: traZODone 50 MG TAB PO (21:00)
[2017-11-06] MEDS: HYDROmorphONE 0.5 MG/0.5 ML SYG IV ×6 (00:26→21:36)
[2017-11-06] MEDS: DEXTROSE 5% IVPB (05:11)
[2017-11-06] MEDS: AMIKACIN IVPB (05:11)
[2017-11-06 06:09] LABS: WHITE BLOOD COUNT 4.8 10^3/ul (4.8-10.8)
[2017-11-06 06:09] LABS: ABNORMAL IP MESSAGE 1; HEMATOCRIT 16.8 % (37.0-47.0); MEAN CORPUSCULAR HEMOGLOBIN 30.8 pg (29.0-33.0); MEAN CORPUSCULAR HGB CONC 33.9 g/dl (32.0-37.0); MEAN CORPUSCULAR VOLUME 90.8 fl (82.0-101.0); MEAN PLATELET VOLUME 10.4 fl (7.4-10.4); NUCLEATED RED BLOOD CELLS% 0.4 /100WBC (0.0-0.0); PLATELET COUNT 165 10^3/UL (140-415); RED BLOOD COUNT 1.85 10^6/ul (4.20-5.40); RED CELL DISTRIBUTION WIDTH 15.4 % (11.5-14.5)
[2017-11-06 06:15] LABS: POSITIVE DIFF @See below
[2017-11-06 06:18] LABS: HEMOGLOBIN 5.7 g/dl (12.0-16.0)
[2017-11-06 06:19] LABS: ADD MAN DIFF? YES
[2017-11-06 06:36] LABS: ANION GAP 11 (8-16); BLOOD UREA NITROGEN 18 mg/dl (7-20); CALCIUM 8.3 mg/dl (8.4-10.2); CARBON DIOXIDE 30 mmol/L (21-31); CHLORIDE 107 mmol/L (97-110); CREATININE 0.79 mg/dl (0.44-1.00); GLUCOSE 81 mg/dl (70-220); PHOSPHORUS 4.4 mg/dl (2.5-4.9); POTASSIUM 3.8 mmol/L (3.5-5.1); SODIUM 144 mmol/L (135-144)
[2017-11-06 06:38] LABS: MAGNESIUM 1.5 mg/dl (1.7-2.5)
[2017-11-06 06:41] LABS: ADD MAN DIFF? NO
[2017-11-06 06:43] LABS: ABNORMAL IP MESSAGE 1; BASOPHILS % 0.6 % (0.0-2.0); EOSINOPHILS # 0.2 10^3/ul (0.0-0.5); EOSINOPHILS % 4.6 % (0.0-7.0); HEMATOCRIT 16.8 % (37.0-47.0); LYMPHOCYTES # 2.1 10^3/ul (0.8-2.9); LYMPHOCYTES % 40.9 % (15.0-51.0); MEAN CORPUSCULAR HEMOGLOBIN 31.5 pg (29.0-33.0); MEAN CORPUSCULAR HGB CONC 34.5 g/dl (32.0-37.0); MEAN CORPUSCULAR VOLUME 91.3 fl (82.0-101.0); MEAN PLATELET VOLUME 10.4 fl (7.4-10.4); MONOCYTE # 0.6 10^3/ul (0.3-0.9); MONOCYTES % 11.3 % (0.0-11.0); NEUTROPHIL # 1.9 10^3/ul (1.6-7.5); NEUTROPHILS % 36.6 % (39.0-77.0); PLATELET COUNT 164 10^3/UL (140-415); RED BLOOD COUNT 1.84 10^6/ul (4.20-5.40); RED CELL DISTRIBUTION WIDTH 15.1 % (11.5-14.5)
[2017-11-06 06:58] LABS: HEMOGLOBIN 5.8 g/dl (12.0-16.0); PATH REVIEW? YES; POSITIVE DIFF @See below
[2017-11-06 07:03] LABS: ANISOCYTOSIS 2+ (0-0); BASOPHILS % (M) 1 % (0-2); EOSINOPHILS % (M) 3 % (0-7); ERYTHROBLAST% (NRBC) (M) 1 % (0-0); GIANT THROMBO% (M) 10 % (0-0); LYMPHOCYTES #M 1.8 10^3/ul (0.8-2.9); LYMPHOCYTES % (M) 39 % (15-51); MICROCYTOSIS 2+ (0-0); MONOCYTE #M 0.1 10^3/ul (0.3-0.9); MONOCYTES % (M) 3 % (0-11); MYELOCYTES % (M) 1 % (0-0); PLATELET ESTIMATE NORMAL; POLYCHROMASIA 1+ (0-0); SEGMENTED NEUTROPHILS (M) % 53 % (39-77); SMUDGE%M 7 % (0-0); TARGET CELLS 1+ (0-0)
[2017-11-06] MEDS: ALBUTEROL 0.083% (NEB) 2.5 MG/3 ML AMP HHN ×4 (07:48→20:01)
[2017-11-06] MEDS: BALSAM PERU/CASTOR OIL 60 GM TUBE TOP ×2 (08:46→21:35)
[2017-11-06] MEDS: ACCU-CHEK XX ×2 (08:47→20:24)
[2017-11-06] MEDS: QUETIAPINE 100 MG TAB PO ×2 (10:03→20:21)
[2017-11-06] MEDS: ENOXAPARIN 40 MG/0.4 ML SYG SC (10:04)
[2017-11-06 10:08] LABS: IMMEDIATE SPIN CROSSMATCH 1 2
[2017-11-06] MEDS: LORAZEPAM 2 MG INJ IV ×2 (10:13→20:22)
[2017-11-06] MEDS: MEDROXYPROGESTERONE 2.5 MG TAB PO (12:49)
[2017-11-06] MEDS: ESTRADIOL 1 MG TAB PO (12:49)
[2017-11-06] MEDS: LACTOBACILLUS RHAMNOSUS CAP PO ×2 (12:49→21:36)
[2017-11-06] MEDS: LEVETIRACETAM 500 MG (PMX) 100 ML IVPB ×2 (12:50→21:35)
[2017-11-06 15:55] LABS: PATH REVIEW CH
[2017-11-06] MEDS: traZODone 50 MG TAB PO (20:21)
[2017-11-06 22:39] LABS: IRON 47 ug/dl (35-150)
[2017-11-06 22:48] LABS: % IRON SATURATION 25 % SAT (22-52); TOTAL IRON BINDING CAPACITY 189 ug/dl (241-421)
[2017-11-07] MEDS: SOD CHLORIDE 0.9% 1,000 ML IV ×2 (00:20→21:27)
[2017-11-07] MEDS: HYDROmorphONE 0.5 MG/0.5 ML SYG IV ×5 (04:03→20:51)
[2017-11-07] MEDS: ALBUTEROL 0.083% (NEB) 2.5 MG/3 ML AMP HHN ×2 (08:02→15:47)
[2017-11-07] MEDS: ESTRADIOL 1 MG TAB PO (08:23)
[2017-11-07] MEDS: MEDROXYPROGESTERONE 2.5 MG TAB PO (08:23)
[2017-11-07] MEDS: LACTOBACILLUS RHAMNOSUS CAP PO ×2 (08:23→21:22)
[2017-11-07] MEDS: BALSAM PERU/CASTOR OIL 60 GM TUBE TOP ×2 (08:24→21:22)
[2017-11-07] MEDS: QUETIAPINE 100 MG TAB PO (08:24)
[2017-11-07] MEDS: LORAZEPAM 2 MG INJ IV ×2 (08:25→21:12)
[2017-11-07] MEDS: LEVETIRACETAM 500 MG (PMX) 100 ML IVPB ×2 (08:25→21:12)
[2017-11-07] MEDS: ACCU-CHEK XX ×2 (09:00→21:45)
[2017-11-07 11:58] LABS: ADD MAN DIFF? NO
[2017-11-07 12:09] LABS: WHITE BLOOD COUNT 4.7 10^3/ul (4.8-10.8)
[2017-11-07 12:09] LABS: BASOPHILS % 0.6 % (0.0-2.0); EOSINOPHILS # 0.2 10^3/ul (0.0-0.5); EOSINOPHILS % 4.9 % (0.0-7.0); HEMATOCRIT 24.3 % (37.0-47.0); HEMOGLOBIN 8.6 g/dl (12.0-16.0); LYMPHOCYTES # 1.6 10^3/ul (0.8-2.9); MEAN CORPUSCULAR HEMOGLOBIN 31.5 pg (29.0-33.0); MEAN CORPUSCULAR HGB CONC 35.4 g/dl (32.0-37.0); MEAN PLATELET VOLUME 10.9 fl (7.4-10.4); MONOCYTE # 0.5 10^3/ul (0.3-0.9); NEUTROPHIL # 2.2 10^3/ul (1.6-7.5); NEUTROPHILS % 46.7 % (39.0-77.0); PLATELET COUNT 162 10^3/UL (140-415); RED BLOOD COUNT 2.73 10^6/ul (4.20-5.40); RED CELL DISTRIBUTION WIDTH 15.9 % (11.5-14.5)
[2017-11-07] MEDS: traZODone 50 MG TAB PO (21:00)
[2017-11-08] MEDS: QUETIAPINE 100 MG TAB PO ×3 (00:17→23:07)
[2017-11-08] MEDS: HYDROmorphONE 0.5 MG/0.5 ML SYG IV ×6 (03:07→23:06)
[2017-11-08 07:03] LABS: ADD MAN DIFF? NO
[2017-11-08 07:12] LABS: WHITE BLOOD COUNT 4.7 10^3/ul (4.8-10.8)
[2017-11-08 07:12] LABS: BASOPHILS % 0.9 % (0.0-2.0); EOSINOPHILS # 0.4 10^3/ul (0.0-0.5); EOSINOPHILS % 8.3 % (0.0-7.0); HEMATOCRIT 26.1 % (37.0-47.0); HEMOGLOBIN 8.8 g/dl (12.0-16.0); LYMPHOCYTES % 43.4 % (15.0-51.0); MEAN CORPUSCULAR HEMOGLOBIN 30.7 pg (29.0-33.0); MEAN CORPUSCULAR HGB CONC 33.7 g/dl (32.0-37.0); MEAN CORPUSCULAR VOLUME 90.9 fl (82.0-101.0); MEAN PLATELET VOLUME 10.2 fl (7.4-10.4); MONOCYTE # 0.5 10^3/ul (0.3-0.9); MONOCYTES % 9.8 % (0.0-11.0); NEUTROPHIL # 1.6 10^3/ul (1.6-7.5); PLATELET COUNT 224 10^3/UL (140-415); RED BLOOD COUNT 2.87 10^6/ul (4.20-5.40); RED CELL DISTRIBUTION WIDTH 16.1 % (11.5-14.5)
[2017-11-08 07:54] LABS: ANION GAP 12 (8-16); BLOOD UREA NITROGEN 9 mg/dl (7-20); CALCIUM 8.4 mg/dl (8.4-10.2); CARBON DIOXIDE 27 mmol/L (21-31); CHLORIDE 111 mmol/L (97-110); CREATININE 0.88 mg/dl (0.44-1.00); GLUCOSE 90 mg/dl (70-220); POTASSIUM 3.5 mmol/L (3.5-5.1); SODIUM 146 mmol/L (135-144)
[2017-11-08] MEDS: ALBUTEROL 0.083% (NEB) 2.5 MG/3 ML AMP HHN ×5 (08:00→23:24)
[2017-11-08] MEDS: ESTRADIOL 1 MG TAB PO (08:34)
[2017-11-08] MEDS: MEDROXYPROGESTERONE 2.5 MG TAB PO (08:34)
[2017-11-08] MEDS: LEVETIRACETAM 500 MG (PMX) 100 ML IVPB ×2 (08:34→21:57)
[2017-11-08] MEDS: LACTOBACILLUS RHAMNOSUS CAP PO ×2 (08:34→21:18)
[2017-11-08] MEDS: BALSAM PERU/CASTOR OIL 60 GM TUBE TOP ×2 (08:35→21:57)
[2017-11-08] MEDS: LORAZEPAM 2 MG INJ IV ×2 (08:39→21:18)
[2017-11-08] MEDS: ACCU-CHEK XX ×2 (08:40→21:56)
[2017-11-08 10:34] LABS: OCCULT BLOOD STOOL POSITIVE (NEGATIVE)
[2017-11-08] MEDS: ONDANSETRON 4 MG TAB PO (17:43)
[2017-11-08] MEDS: traZODone 50 MG TAB PO (19:48)
[2017-11-09] MEDS: HYDROmorphONE 0.5 MG/0.5 ML SYG IV ×6 (04:00→23:59)
[2017-11-09 06:34] LABS: ADD MAN DIFF? NO
[2017-11-09 06:39] LABS: WHITE BLOOD COUNT 4.9 10^3/ul (4.8-10.8)
[2017-11-09 06:39] LABS: BASOPHILS % 0.8 % (0.0-2.0); EOSINOPHILS # 0.5 10^3/ul (0.0-0.5); EOSINOPHILS % 9.7 % (0.0-7.0); HEMATOCRIT 27.4 % (37.0-47.0); HEMOGLOBIN 9.1 g/dl (12.0-16.0); LYMPHOCYTES # 2.2 10^3/ul (0.8-2.9); LYMPHOCYTES % 43.7 % (15.0-51.0); MEAN CORPUSCULAR HEMOGLOBIN 30.5 pg (29.0-33.0); MEAN CORPUSCULAR HGB CONC 33.2 g/dl (32.0-37.0); MEAN CORPUSCULAR VOLUME 91.9 fl (82.0-101.0); MEAN PLATELET VOLUME 9.7 fl (7.4-10.4); MONOCYTE # 0.5 10^3/ul (0.3-0.9); MONOCYTES % 9.5 % (0.0-11.0); NEUTROPHIL # 1.7 10^3/ul (1.6-7.5); NEUTROPHILS % 34.5 % (39.0-77.0); PLATELET COUNT 223 10^3/UL (140-415); RED BLOOD COUNT 2.98 10^6/ul (4.20-5.40); RED CELL DISTRIBUTION WIDTH 16.1 % (11.5-14.5)
[2017-11-09 06:57] LABS: ANION GAP 11 (8-16); BLOOD UREA NITROGEN 10 mg/dl (7-20); CALCIUM 8.7 mg/dl (8.4-10.2); CARBON DIOXIDE 27 mmol/L (21-31); CHLORIDE 112 mmol/L (97-110); CREATININE 0.93 mg/dl (0.44-1.00); GLUCOSE 68 mg/dl (70-220); POTASSIUM 3.5 mmol/L (3.5-5.1); SODIUM 146 mmol/L (135-144)
[2017-11-09] MEDS: LACTOBACILLUS RHAMNOSUS CAP PO ×2 (08:01→21:06)
[2017-11-09] MEDS: ESTRADIOL 1 MG TAB PO (08:01)
[2017-11-09] MEDS: QUETIAPINE 100 MG TAB PO ×4 (08:01→21:48)
[2017-11-09] MEDS: MEDROXYPROGESTERONE 2.5 MG TAB PO (08:01)
[2017-11-09] MEDS: BALSAM PERU/CASTOR OIL 60 GM TUBE TOP ×2 (08:04→21:07)
[2017-11-09] MEDS: ACCU-CHEK XX ×2 (08:31→21:08)
[2017-11-09] MEDS: ALBUTEROL 0.083% (NEB) 2.5 MG/3 ML AMP HHN ×3 (08:35→23:10)
[2017-11-09] MEDS: LORAZEPAM 2 MG INJ IV ×2 (09:19→21:08)
[2017-11-09] MEDS: LEVETIRACETAM 500 MG (PMX) 100 ML IVPB ×2 (09:19→21:05)
[2017-11-09] MEDS: traZODone 50 MG TAB PO (21:00)
[2017-11-10] MEDS: HYDROmorphONE 0.5 MG/0.5 ML SYG IV ×5 (04:21→19:54)
[2017-11-10] MEDS: ALBUTEROL 0.083% (NEB) 2.5 MG/3 ML AMP HHN ×4 (07:40→23:14)
[2017-11-10 07:44] LABS: ADD MAN DIFF? NO
[2017-11-10 07:50] LABS: WHITE BLOOD COUNT 5.7 10^3/ul (4.8-10.8)
[2017-11-10 07:50] LABS: BASOPHILS % 0.7 % (0.0-2.0); EOSINOPHILS # 0.8 10^3/ul (0.0-0.5); EOSINOPHILS % 14.1 % (0.0-7.0); HEMATOCRIT 28.6 % (37.0-47.0); HEMOGLOBIN 9.5 g/dl (12.0-16.0); LYMPHOCYTES # 2.5 10^3/ul (0.8-2.9); LYMPHOCYTES % 43.4 % (15.0-51.0); MEAN CORPUSCULAR HEMOGLOBIN 30.5 pg (29.0-33.0); MEAN CORPUSCULAR HGB CONC 33.2 g/dl (32.0-37.0); MEAN PLATELET VOLUME 10.4 fl (7.4-10.4); MONOCYTE # 0.5 10^3/ul (0.3-0.9); MONOCYTES % 8.4 % (0.0-11.0); NEUTROPHIL # 1.8 10^3/ul (1.6-7.5); NEUTROPHILS % 32.3 % (39.0-77.0); PLATELET COUNT 245 10^3/UL (140-415); RED BLOOD COUNT 3.11 10^6/ul (4.20-5.40); RED CELL DISTRIBUTION WIDTH 15.9 % (11.5-14.5)
[2017-11-10] MEDS: QUETIAPINE 100 MG TAB PO ×2 (08:15→21:18)
[2017-11-10] MEDS: LEVETIRACETAM 500 MG (PMX) 100 ML IVPB (08:15)
[2017-11-10] MEDS: MEDROXYPROGESTERONE 2.5 MG TAB PO (08:15)
[2017-11-10] MEDS: LACTOBACILLUS RHAMNOSUS CAP PO ×2 (08:15→19:59)
[2017-11-10] MEDS: ESTRADIOL 1 MG TAB PO (08:15)
[2017-11-10] MEDS: BALSAM PERU/CASTOR OIL 60 GM TUBE TOP ×2 (08:16→20:09)
[2017-11-10] MEDS: LEVETIRACETAM 500 MG TAB PO ×2 (09:00→19:59)
[2017-11-10] MEDS: ACCU-CHEK XX ×2 (09:05→21:22)
[2017-11-10] MEDS: LORAZEPAM 1 MG TAB PO ×2 (09:39→19:59)
[2017-11-10 10:35] LABS: ANION GAP 13 (8-16); BLOOD UREA NITROGEN 11 mg/dl (7-20); CALCIUM 8.8 mg/dl (8.4-10.2); CARBON DIOXIDE 25 mmol/L (21-31); CHLORIDE 112 mmol/L (97-110); CREATININE 1.03 mg/dl (0.44-1.00); GLUCOSE 69 mg/dl (70-220); POTASSIUM 3.5 mmol/L (3.5-5.1); SODIUM 146 mmol/L (135-144)
[2017-11-10] MEDS: BISACODYL (EC) 5 MG TAB PO (11:50)
[2017-11-10] MEDS: POLYETHYLENE GLYCOL 3350 119 GM POWDER PO (18:02)
[2017-11-10] MEDS: MAGNESIUM CITRATE 300 ML BTL PO (19:59)
[2017-11-10] MEDS: traZODone 50 MG TAB PO (20:04)
[2017-11-10] MEDS: ONDANSETRON 4 MG TAB PO (20:08)
[2017-11-10 20:41] LABS: D-DIMER 2819.48 ng/ml (<460)
[2017-11-10] MEDS: SOD CHLORIDE 0.9% 100 ML (23:37)
[2017-11-10] MEDS: IOHEXOL 300MG/ML 150 ML BTL (23:37)
[2017-11-11] MEDS: HYDROmorphONE 0.5 MG/0.5 ML SYG IV ×6 (00:22→23:14)
[2017-11-11] MEDS: POLYETHYLENE GLYCOL 3350 119 GM POWDER PO (04:52)
[2017-11-11 06:49] LABS: ADD MAN DIFF? NO
[2017-11-11 06:52] LABS: WHITE BLOOD COUNT 5.7 10^3/ul (4.8-10.8)
[2017-11-11 06:52] LABS: BASOPHIL # 0.1 10^3/ul (0.0-0.1); BASOPHILS % 1.1 % (0.0-2.0); EOSINOPHILS # 0.7 10^3/ul (0.0-0.5); EOSINOPHILS % 13.1 % (0.0-7.0); HEMATOCRIT 29.5 % (37.0-47.0); HEMOGLOBIN 9.8 g/dl (12.0-16.0); LYMPHOCYTES # 2.2 10^3/ul (0.8-2.9); LYMPHOCYTES % 39.1 % (15.0-51.0); MEAN CORPUSCULAR HEMOGLOBIN 30.5 pg (29.0-33.0); MEAN CORPUSCULAR HGB CONC 33.2 g/dl (32.0-37.0); MEAN CORPUSCULAR VOLUME 91.9 fl (82.0-101.0); MEAN PLATELET VOLUME 10.2 fl (7.4-10.4); MONOCYTE # 0.4 10^3/ul (0.3-0.9); MONOCYTES % 6.5 % (0.0-11.0); NEUTROPHIL # 2.2 10^3/ul (1.6-7.5); NEUTROPHILS % 39.7 % (39.0-77.0); PLATELET COUNT 257 10^3/UL (140-415); RED BLOOD COUNT 3.21 10^6/ul (4.20-5.40); RED CELL DISTRIBUTION WIDTH 15.7 % (11.5-14.5)
[2017-11-11 07:18] LABS: ANION GAP 14 (8-16); BLOOD UREA NITROGEN 8 mg/dl (7-20); CALCIUM 9.2 mg/dl (8.4-10.2); CARBON DIOXIDE 26 mmol/L (21-31); CHLORIDE 111 mmol/L (97-110); CREATININE 0.95 mg/dl (0.44-1.00); GLUCOSE 76 mg/dl (70-220); POTASSIUM 3.3 mmol/L (3.5-5.1); SODIUM 148 mmol/L (135-144)
[2017-11-11] MEDS: QUETIAPINE 100 MG TAB PO ×2 (08:16→21:12)
[2017-11-11] MEDS: ALBUTEROL 0.083% (NEB) 2.5 MG/3 ML AMP HHN ×2 (08:16→16:00)
[2017-11-11] MEDS: LEVETIRACETAM 500 MG TAB PO ×2 (08:16→21:10)
[2017-11-11] MEDS: BISACODYL (EC) 5 MG TAB PO (08:16)
[2017-11-11] MEDS: LACTOBACILLUS RHAMNOSUS CAP PO ×2 (08:17→21:10)
[2017-11-11] MEDS: ESTRADIOL 1 MG TAB PO (08:17)
[2017-11-11] MEDS: MEDROXYPROGESTERONE 2.5 MG TAB PO (08:17)
[2017-11-11] MEDS: LORAZEPAM 1 MG TAB PO ×2 (08:18→22:10)
[2017-11-11] MEDS: ACCU-CHEK XX ×2 (08:22→21:00)
[2017-11-11] MEDS: BALSAM PERU/CASTOR OIL 60 GM TUBE TOP ×2 (09:05→22:14)
[2017-11-11] MEDS: POTASSIUM CHLORIDE 100 ML IVPB ×2 (11:49→17:11)
[2017-11-11] MEDS: traZODone 50 MG TAB PO (21:00)
[2017-11-12] MEDS: HYDROmorphONE 0.5 MG/0.5 ML SYG IV ×3 (03:36→12:37)
[2017-11-12 05:38] LABS: ADD MAN DIFF? NO
[2017-11-12 05:43] LABS: WHITE BLOOD COUNT 7.1 10^3/ul (4.8-10.8)
[2017-11-12 05:43] LABS: BASOPHIL # 0.1 10^3/ul (0.0-0.1); BASOPHILS % 0.8 % (0.0-2.0); EOSINOPHILS # 0.6 10^3/ul (0.0-0.5); EOSINOPHILS % 8.6 % (0.0-7.0); HEMATOCRIT 32.3 % (37.0-47.0); HEMOGLOBIN 10.6 g/dl (12.0-16.0); LYMPHOCYTES # 2.6 10^3/ul (0.8-2.9); LYMPHOCYTES % 37.2 % (15.0-51.0); MEAN CORPUSCULAR HEMOGLOBIN 30.5 pg (29.0-33.0); MEAN CORPUSCULAR HGB CONC 32.8 g/dl (32.0-37.0); MEAN CORPUSCULAR VOLUME 93.1 fl (82.0-101.0); MEAN PLATELET VOLUME 10.2 fl (7.4-10.4); MONOCYTE # 0.5 10^3/ul (0.3-0.9); MONOCYTES % 6.4 % (0.0-11.0); NEUTROPHIL # 3.3 10^3/ul (1.6-7.5); NEUTROPHILS % 46.6 % (39.0-77.0); PLATELET COUNT 284 10^3/UL (140-415); RED BLOOD COUNT 3.47 10^6/ul (4.20-5.40); RED CELL DISTRIBUTION WIDTH 15.2 % (11.5-14.5)
[2017-11-12 06:04] LABS: ANION GAP 15 (8-16); BLOOD UREA NITROGEN 10 mg/dl (7-20); CALCIUM 9.4 mg/dl (8.4-10.2); CARBON DIOXIDE 26 mmol/L (21-31); CHLORIDE 111 mmol/L (97-110); CREATININE 1.05 mg/dl (0.44-1.00); GLUCOSE 79 mg/dl (70-220); POTASSIUM 3.6 mmol/L (3.5-5.1); SODIUM 148 mmol/L (135-144)
[2017-11-12] MEDS: ALBUTEROL 0.083% (NEB) 2.5 MG/3 ML AMP HHN ×4 (07:58→23:58)
[2017-11-12] MEDS: LACTOBACILLUS RHAMNOSUS CAP PO ×2 (08:18→20:40)
[2017-11-12] MEDS: QUETIAPINE 100 MG TAB PO ×2 (08:18→21:47)
[2017-11-12] MEDS: MEDROXYPROGESTERONE 2.5 MG TAB PO (08:18)
[2017-11-12] MEDS: ESTRADIOL 1 MG TAB PO (08:18)
[2017-11-12] MEDS: LEVETIRACETAM 500 MG TAB PO ×2 (08:18→20:39)
[2017-11-12] MEDS: BALSAM PERU/CASTOR OIL 60 GM TUBE TOP ×2 (08:19→20:41)
[2017-11-12] MEDS: ACCU-CHEK XX ×2 (08:28→20:46)
[2017-11-12] MEDS: LORAZEPAM 1 MG TAB PO (13:41)
[2017-11-12] MEDS: HYDROmorphONE 2 MG TAB PO ×2 (16:36→20:39)
[2017-11-12] MEDS: traZODone 50 MG TAB PO (20:40)
[2017-11-13] MEDS: HYDROmorphONE 2 MG TAB PO ×3 (01:52→10:00)
[2017-11-13] MEDS: LORAZEPAM 1 MG TAB PO (05:01)
[2017-11-13] MEDS: ALBUTEROL 0.083% (NEB) 2.5 MG/3 ML AMP HHN (07:54)
[2017-11-13] MEDS: ACCU-CHEK XX (08:08)
[2017-11-13] MEDS: ESTRADIOL 1 MG TAB PO (08:27)
[2017-11-13] MEDS: LEVETIRACETAM 500 MG TAB PO (08:27)
[2017-11-13] MEDS: MEDROXYPROGESTERONE 2.5 MG TAB PO (08:27)
[2017-11-13] MEDS: QUETIAPINE 100 MG TAB PO (08:27)
[2017-11-13] MEDS: LACTOBACILLUS RHAMNOSUS CAP PO (08:27)
[2017-11-13] MEDS: BALSAM PERU/CASTOR OIL 60 GM TUBE TOP (08:29)
== END 2017-11-13 10:50 | disposition home or self-care (01) | DRG 871 ==
LOC: MS4 23:02 → TEL 11-06 08:29 → PP2 11-10 11:07 → E/R 20:20 → PP2 10-27 14:34 → MS4 10-17 18:20
PROC: 0DB98ZX Excision of Duodenum, Via Natural or Artificial Opening Endoscopic, Diagnostic (ICD-10-PCS; principal; 2017-11-11 12:30)
PROC: 0DB68ZX Excision of Stomach, Via Natural or Artificial Opening Endoscopic, Diagnostic (ICD-10-PCS; 2017-11-11 12:30)
PROC: 0DBP8ZX Excision of Rectum, Via Natural or Artificial Opening Endoscopic, Diagnostic (ICD-10-PCS; 2017-11-11 12:30)
PROC: 0DBN8ZX Excision of Sigmoid Colon, Via Natural or Artificial Opening Endoscopic, Diagnostic (ICD-10-PCS; 2017-11-11 12:30)
PROC: 02H633Z Insertion of Infusion Device into Right Atrium, Percutaneous Approach (ICD-10-PCS; 2017-11-11 12:30)
PROC: 02HV33Z Insertion of Infusion Device into Superior Vena Cava, Percutaneous Approach (ICD-10-PCS; 2017-11-11 12:30)
PROC: 30233N1 Transfusion of Nonautologous Red Blood Cells into Peripheral Vein, Percutaneous Approach (ICD-10-PCS; 2017-11-11 12:30)
DX: A41.9 Sepsis, unspecified organism (principal); G93.41 Metabolic encephalopathy; J69.0 Pneumonitis due to inhalation of food and vomit; S22.42XA Multiple fractures of ribs, left side, initial encounter for closed fracture; N17.9 Acute kidney failure, unspecified; L03.115 Cellulitis of right lower limb; E87.0 Hyperosmolality and hypernatremia; K56.50 Intestinal adhesions [bands], unspecified as to partial versus complete obstruction; K80.12 Calculus of gallbladder with acute and chronic cholecystitis without obstruction; R65.20 Severe sepsis without septic shock; D69.6 Thrombocytopenia, unspecified; D64.9 Anemia, unspecified; E87.6 Hypokalemia; F41.9 Anxiety disorder, unspecified; F32.9 Major depressive disorder, single episode, unspecified; F17.200 Nicotine dependence, unspecified, uncomplicated; F15.90 Other stimulant use, unspecified, uncomplicated; G89.29 Other chronic pain; M54.9 Dorsalgia, unspecified; G40.909 Epilepsy, unspecified, not intractable, without status epilepticus; K62.89 Other specified diseases of anus and rectum; K57.30 Diverticulosis of large intestine without perforation or abscess without bleeding; K64.8 Other hemorrhoids; K63.5 Polyp of colon; K29.70 Gastritis, unspecified, without bleeding; K31.89 Other diseases of stomach and duodenum; K74.60 Unspecified cirrhosis of liver; N28.9 Disorder of kidney and ureter, unspecified; B96.1 Klebsiella pneumoniae [K. pneumoniae] as the cause of diseases classified elsewhere; B95.2 Enterococcus as the cause of diseases classified elsewhere; Z16.21 Resistance to vancomycin; Z16.19 Resistance to other specified beta lactam antibiotics; X58.XXXA Exposure to other specified factors, initial encounter; Z86.11 Personal history of tuberculosis
CPT/HCPCS: 36415; 36430; 36569; 36600; 70450; 71045; 71110; 71250; 71275; 73630; 74018; 74019; 74176; 74177; 74181; 74250; 76700; 76937; 78226; 80048; 80053; 80061; 80076; 80150; 80202; 80307; 81001; 81003; 82043; 82270; 82550; 82803; 82962; 83036; 83540; 83605; 83690; 83735; 83880; 84100; 84134; 84155; 84300; 84439; 84443; 84478; 84480; 84484; 85025; 85378; 85610; 85730; 86038; 86255; 86403; 86480; 86635; 86703; 86706; 86708; 86738; 86803; 86850; 86900; 86901; 86920; 87040; 87086; 87275; 87276; 87279; 87280; 87340; 88305; 88312; 93005; 93306; 93970; 94640; 94664; 96374; 96375; 97162; 99291-25